=== PATIENT | male | born 1950 | race Caucasian/White ===

== ENCOUNTER → 2016-12-10 | Outpatient (REF) | payer OTHER ==
[2016-12-10 12:13] LABS: MEAN CORPUSCULAR HEMOGLOBIN 31.5 pg (27.0-33.0); MEAN CORPUSCULAR HGB CONC 33.3 g/dl (32.0-36.5); MEAN CORPUSCULAR VOLUME 94.5 fl (80.0-96.0); RED CELL DISTRIBUTION WIDTH 12.9 % (11.5-14.5); WHITE BLOOD COUNT 11.6 K/mm3 (4.0-10.0)
[2016-12-10 12:26] LABS: ALBUMIN 4.1 GM/DL (3.2-5.2); ALBUMIN/GLOBULIN RATIO 1.41 (1.00-1.93); BILIRUBIN,TOTAL 0.8 MG/DL (0.2-1.0); CALCIUM LEVEL 9.3 MG/DL (8.8-10.2); CREATININE FOR GFR 1.3 MG/DL (0.70-1.30); GLOMERULAR FILTRATION RATE 59.2 (>49); POTASSIUM SERUM 4.4 MEQ/L (3.5-5.1)
== END ==
LOC: M SFHCLERA 07:58
PROVIDERS: ATTEND Physician Assistant
DX: I10 Essential (primary) hypertension (principal); E78.2 Mixed hyperlipidemia; E11.9 Type 2 diabetes mellitus without complications; Z12.5 Encounter for screening for malignant neoplasm of prostate
CPT/HCPCS: 80053; 80061; 83036; 85027; G0103

== ENCOUNTER → 2017-06-12 | Outpatient (REF) | payer MEDICARE, OTHER ==
[2017-06-12 12:10] LABS: ALBUMIN/GLOBULIN RATIO 1.48 (1.00-1.93); ALKALINE PHOSPHATASE 35 U/L (45-117); ALT/SGPT 42 U/L (12-78); ANION GAP 5 MEQ/L (8-16); AST/SGOT 15 U/L (15-37); BILIRUBIN,TOTAL 0.6 MG/DL (0.2-1.0); BLOOD UREA NITROGEN 18 MG/DL (7-18); CALCIUM LEVEL 9.3 MG/DL (8.8-10.2); CARBON DIOXIDE LEVEL 30 MEQ/L (21-32); CHLORIDE LEVEL 107 MEQ/L (98-107); CHOLESTEROL LEVEL 111 MG/DL (<200); CREATININE FOR GFR 1.04 MG/DL (0.70-1.30); GLOMERULAR FILTRATION RATE > 60.0 (>49); GLUCOSE, FASTING 126 MG/DL (80-110); POTASSIUM SERUM 4.3 MEQ/L (3.5-5.1); SODIUM LEVEL 142 MEQ/L (136-145); TOTAL PROTEIN 6.7 GM/DL (6.4-8.2); TRIGLYCERIDES LEVEL 180 MG/DL (<150)
== END ==
LOC: M SFHCLERA 08:05
PROVIDERS: ATTEND Physician Assistant
DX: I10 Essential (primary) hypertension (principal); E11.9 Type 2 diabetes mellitus without complications; E78.2 Mixed hyperlipidemia

== ENCOUNTER → 2017-12-09 | Outpatient (REF) | payer MEDICARE, OTHER ==
[2017-12-09 12:16] LABS: HEMATOCRIT 49.1 % (42.0-52.0); HEMOGLOBIN 16.4 g/dl (14.0-18.0); MEAN CORPUSCULAR HEMOGLOBIN 30.4 pg (27.0-33.0); MEAN CORPUSCULAR HGB CONC 33.4 g/dl (32.0-36.5); MEAN CORPUSCULAR VOLUME 90.9 fl (80.0-96.0); PLATELET COUNT, AUTOMATED 321 10^3/uL (150-450); RED CELL DISTRIBUTION WIDTH 13.5 % (11.5-14.5); WHITE BLOOD COUNT 11.9 10^3/uL (4.0-10.0)
[2017-12-09 12:34] LABS: ALBUMIN 4.2 GM/DL (3.2-5.2); ALKALINE PHOSPHATASE 38 U/L (45-117); ALT/SGPT 57 U/L (12-78); ANION GAP 8 MEQ/L (8-16); AST/SGOT 26 U/L (7-37); BILIRUBIN,TOTAL 0.8 MG/DL (0.2-1.0); BLOOD UREA NITROGEN 18 MG/DL (7-18); CALCIUM LEVEL 9.4 MG/DL (8.8-10.2); CARBON DIOXIDE LEVEL 30 MEQ/L (21-32); CHLORIDE LEVEL 102 MEQ/L (98-107); CHOLESTEROL LEVEL 123 MG/DL (<200); CHOLESTEROL RISK RATIO 3.727 (<5); CREATININE FOR GFR 1.14 MG/DL (0.70-1.30); GLOMERULAR FILTRATION RATE > 60.0 (>49); GLUCOSE, FASTING 129 MG/DL (70-100); HDL CHOLESTEROL 33 MG/DL (>40); LDL CHOLESTEROL 50.8 MG/DL (<100); NON-HDL-C 90 MG/DL; POTASSIUM SERUM 4.5 MEQ/L (3.5-5.1); PSA SCREENING 3.37 NG/ML (< 4.0); SODIUM LEVEL 140 MEQ/L (136-145); TRIGLYCERIDES LEVEL 196 MG/DL (<150)
[2017-12-09 13:26] LABS: ESTIMATED AVERAGE GLUCOSE 169 MG/DL (60-110); HEMOGLOBIN A1c 7.5 %
== END ==
LOC: M SFHCLERA 08:04
DX: I10 Essential (primary) hypertension (principal); E11.9 Type 2 diabetes mellitus without complications; E78.2 Mixed hyperlipidemia; N40.1 Benign prostatic hyperplasia with lower urinary tract symptoms
CPT/HCPCS: 80053

== ENCOUNTER → 2018-01-08 | Outpatient (REF) | payer MEDICARE, OTHER | LOC: M LAB REF 19:27 | DX: N39.0 Urinary tract infection, site not specified (principal) | CPT/HCPCS: 87088 ==

== ENCOUNTER → 2018-01-08 | Outpatient (CLI) | payer MEDICARE, OTHER ==
[2018-01-08 19:46] LABS: HEMATOCRIT 44.6 % (42.0-52.0); MEAN CORPUSCULAR HEMOGLOBIN 30.5 pg (27.0-33.0); MEAN CORPUSCULAR HGB CONC 33.6 g/dl (32.0-36.5); MEAN CORPUSCULAR VOLUME 90.8 fl (80.0-96.0); PLATELET COUNT, AUTOMATED 310 10^3/uL (150-450); RED BLOOD COUNT 4.91 10^6/uL (4.30-6.10); RED CELL DISTRIBUTION WIDTH 13.4 % (11.5-14.5)
[2018-01-08 19:49] LABS: POSITIVE DIFF POS FLAG
[2018-01-08 19:51] LABS: ADD MANUAL DIFFER YES; DIFF SLIDE NUMBER 319
[2018-01-08 20:00] LABS: ALBUMIN 3.8 GM/DL (3.2-5.2); ALBUMIN/GLOBULIN RATIO 1.27 (1.00-1.93); ALKALINE PHOSPHATASE 39 U/L (45-117); ALT/SGPT 36 U/L (12-78); ANION GAP 6 MEQ/L (8-16); AST/SGOT 11 U/L (7-37); BILIRUBIN,TOTAL 1.2 MG/DL (0.2-1.0); BLOOD UREA NITROGEN 14 MG/DL (7-18); CARBON DIOXIDE LEVEL 29 MEQ/L (21-32); CHLORIDE LEVEL 101 MEQ/L (98-107); CREATININE FOR GFR 1.15 MG/DL (0.70-1.30); GLOMERULAR FILTRATION RATE > 60.0 (>49); GLUCOSE, FASTING 137 MG/DL (70-100); POTASSIUM SERUM 3.8 MEQ/L (3.5-5.1); SODIUM LEVEL 136 MEQ/L (136-145); TOTAL PROTEIN 6.8 GM/DL (6.4-8.2)
[2018-01-08 20:36] LABS: ATYPICAL LYMPH 1 % (0-5); LYMPHOCYTES 7 % (16-52); MONOCYTES 4 % (0-8); NEUTROPHILS 88 % (35-75)
[2018-01-08 20:40] LABS: PLATELET ESTIMATE NORMAL (NORMAL)
== END ==
LOC: M WUC 16:25
DX: N39.0 Urinary tract infection, site not specified (principal)
CPT/HCPCS: 80053

== ENCOUNTER → 2018-01-09 | Outpatient (CLI) | payer MEDICARE, OTHER ==
[2018-01-09 20:11] LABS: BASO # 0.1 10^3/uL (0.0-0.2); BASO % 0.3 % (0.0-1.0); EOS # 0.2 10^3/uL (0.0-0.50); EOS % 0.6 % (0.0-3.0); HEMATOCRIT 42.6 % (42.0-52.0); HEMOGLOBIN 14.1 g/dl (14.0-18.0); IMMATURE GRANULOCYTE % 0.9 % (0-3.0); LYMPH # 2.2 10^3/uL (1.5-4.5); MEAN CORPUSCULAR HEMOGLOBIN 30.9 pg (27.0-33.0); MEAN CORPUSCULAR HGB CONC 33.1 g/dl (32.0-36.5); MEAN CORPUSCULAR VOLUME 93.4 fl (80.0-96.0); MONO # 1.9 10^3/uL (0.0-0.8); NEUTROPHILS # 23.1 10^3/uL (1.8-7.7); NEUTROPHILS % 83.2 % (36.0-66.0); PLATELET COUNT, AUTOMATED 272 10^3/uL (150-450); RED BLOOD COUNT 4.56 10^6/uL (4.30-6.10); RED CELL DISTRIBUTION WIDTH 13.8 % (11.5-14.5); WHITE BLOOD COUNT 27.8 10^3/uL (4.0-10.0)
== END ==
LOC: M WUC 16:35
DX: N39.0 Urinary tract infection, site not specified (principal); D72.829 Elevated white blood cell count, unspecified
CPT/HCPCS: 85025

== ENCOUNTER 2018-01-10 15:21 | Emergency (ER) | payer MEDICARE, BC, OTHER ==
[2018-01-10 17:54] LABS: APPEARANCE, URINE CLEAR (CLEAR); BACTERIA, URINE AUTO NEGATIVE (NEGATIVE); BILIRUBIN, URINE AUTO NEGATIVE (NEGATIVE); BLOOD, URINE BLOOD NEGATIVE (NEGATIVE); COLOR, URINE YELLOW (YELLOW); GLUCOSE, URINE (UA) AUTO NEGATIVE (NEGATIVE); KETONE, URINE AUTO NEGATIVE (NEGATIVE); LEUKOCYTE ESTERASE, URINE AUTO TRACE (NEGATIVE); MUCUS, URINE SMALL (NEGATIVE); NITRITE, URINE AUTO NEGATIVE (NEGATIVE); PROTEIN, URINE AUTO NEGATIVE (NEGATIVE); RBC, URINE AUTO 1 /HPF (0-3); SPECIFIC GRAVITY URINE AUTO 1.012 (1.002-1.035); SQUAMOUS EPITHELIAL CELL UR AU 0 /HPF (0-6); WBC, URINE AUTO 3 /HPF (0-3)
[2018-01-10 18:18] LABS: BASO # 0.1 10^3/uL (0.0-0.2); BASO % 0.5 % (0.0-1.0); EOS # 0.3 10^3/uL (0.0-0.50); EOS % 1.5 % (0.0-3.0); HEMATOCRIT 44.2 % (42.0-52.0); IMMATURE GRANULOCYTE % 0.7 % (0-3.0); LYMPH # 1.5 10^3/uL (1.5-4.5); MEAN CORPUSCULAR HEMOGLOBIN 30.8 pg (27.0-33.0); MEAN CORPUSCULAR HGB CONC 33.9 g/dl (32.0-36.5); MEAN CORPUSCULAR VOLUME 90.8 fl (80.0-96.0); MONO # 1.4 10^3/uL (0.0-0.8); NEUTROPHILS # 13.7 10^3/uL (1.8-7.7); NEUTROPHILS % 80.3 % (36.0-66.0); PLATELET COUNT, AUTOMATED 279 10^3/uL (150-450); RED BLOOD COUNT 4.87 10^6/uL (4.30-6.10); RED CELL DISTRIBUTION WIDTH 13.7 % (11.5-14.5); WHITE BLOOD COUNT 17.1 10^3/uL (4.0-10.0)
[2018-01-10 18:48] LABS: ALBUMIN 3.8 GM/DL (3.2-5.2); ALBUMIN/GLOBULIN RATIO 0.95 (1.00-1.93); ALKALINE PHOSPHATASE 45 U/L (45-117); ALT/SGPT 29 U/L (12-78); ANION GAP 7 MEQ/L (8-16); AST/SGOT 10 U/L (7-37); BILIRUBIN,TOTAL 0.6 MG/DL (0.2-1.0); BLOOD UREA NITROGEN 18 MG/DL (7-18); CALCIUM LEVEL 9.3 MG/DL (8.8-10.2); CARBON DIOXIDE LEVEL 28 MEQ/L (21-32); CHLORIDE LEVEL 103 MEQ/L (98-107); CREATININE FOR GFR 0.99 MG/DL (0.70-1.30); GLOMERULAR FILTRATION RATE > 60.0 (>49); GLUCOSE, FASTING 128 MG/DL (70-100); POTASSIUM SERUM 3.5 MEQ/L (3.5-5.1); SODIUM LEVEL 138 MEQ/L (136-145); TOTAL PROTEIN 7.8 GM/DL (6.4-8.2)
== END 2018-01-10 19:18 | disposition home or self-care (01) ==
LOC: M ED 15:21
DX: R33.9 Retention of urine, unspecified (principal); I10 Essential (primary) hypertension; E78.5 Hyperlipidemia, unspecified; E11.9 Type 2 diabetes mellitus without complications; K21.9 Gastro-esophageal reflux disease without esophagitis; N40.0 Benign prostatic hyperplasia without lower urinary tract symptoms; F17.200 Nicotine dependence, unspecified, uncomplicated; Z79.899 Other long term (current) drug therapy; Z79.01 Long term (current) use of anticoagulants; Z79.84 Long term (current) use of oral hypoglycemic drugs
CPT/HCPCS: 80053

== ENCOUNTER → 2018-07-16 | Outpatient (REF) | payer MEDICARE, OTHER ==
[2018-07-16 15:50] LABS: ESTIMATED AVERAGE GLUCOSE 143 MG/DL (60-110); HEMOGLOBIN A1c 6.6 %
== END ==
LOC: M SFHCSACK 09:16
DX: E11.9 Type 2 diabetes mellitus without complications (principal)
CPT/HCPCS: 83036

== ENCOUNTER → 2018-07-17 | Outpatient (REF) | payer MEDICARE, OTHER ==
[2018-07-17 14:32] LABS: ALBUMIN 3.9 GM/DL (3.2-5.2); ALBUMIN/GLOBULIN RATIO 1.39 (1.00-1.93); ALKALINE PHOSPHATASE 40 U/L (45-117); ALT/SGPT 37 U/L (12-78); ANION GAP 6 MEQ/L (8-16); AST/SGOT 16 U/L (7-37); BILIRUBIN,TOTAL 0.7 MG/DL (0.2-1.0); BLOOD UREA NITROGEN 15 MG/DL (7-18); CARBON DIOXIDE LEVEL 30 MEQ/L (21-32); CHLORIDE LEVEL 106 MEQ/L (98-107); CREATININE FOR GFR 1.03 MG/DL (0.70-1.30); GLOMERULAR FILTRATION RATE > 60.0 (>49); GLUCOSE, FASTING 123 MG/DL (70-100); POTASSIUM SERUM 4.2 MEQ/L (3.5-5.1); SODIUM LEVEL 142 MEQ/L (136-145); TOTAL PROTEIN 6.7 GM/DL (6.4-8.2)
== END ==
LOC: M SFHCSACK 09:04
DX: E11.9 Type 2 diabetes mellitus without complications (principal)
CPT/HCPCS: 80053

== ENCOUNTER → 2018-08-18 | Outpatient (REF) | payer MEDICARE, OTHER | LOC: M SFHCSACK 10:43 | DX: I10 Essential (primary) hypertension (principal); E78.2 Mixed hyperlipidemia; E11.9 Type 2 diabetes mellitus without complications; Z13.21 Encounter for screening for nutritional disorder ==

== ENCOUNTER → 2019-01-21 | Outpatient (REF) | payer MEDICARE, OTHER ==
[~2019-01-21] MED LIST: ATOR1TAB19 PO; BISO5TAB5 PO; CIPR-249 PO; ELIQ5TAB PO; FENO134C PO; HYDR12.55 PO; LISI-538 PO; METF500T13 PO; OMEP40CA2 PO; TERA5CAP3 PO; TRAV04OPD OU
[2019-01-21 14:39] LABS: ALBUMIN 3.8 GM/DL (3.2-5.2); ALT/SGPT 51 U/L (12-78); BILIRUBIN,TOTAL 0.9 MG/DL (0.2-1.0); BLOOD UREA NITROGEN 14 MG/DL (7-18); CALCIUM LEVEL 9.1 MG/DL (8.8-10.2); CARBON DIOXIDE LEVEL 30 MEQ/L (21-32); CHLORIDE LEVEL 101 MEQ/L (98-107); CHOLESTEROL LEVEL 114 MG/DL (<200); CHOLESTEROL RISK RATIO 4.071 (<5); CREATININE FOR GFR 1.02 MG/DL (0.70-1.30); GLOMERULAR FILTRATION RATE > 60.0 (>49); GLUCOSE, FASTING 145 MG/DL (70-100); HDL CHOLESTEROL 28 MG/DL (>40); LDL CHOLESTEROL 51 MG/DL (<100); NON-HDL-C 86 MG/DL; POTASSIUM SERUM 4.3 MEQ/L (3.5-5.1); SODIUM LEVEL 139 MEQ/L (136-145); TOTAL 25(OH) VITAMIN D 15.4 NG/ML (30.0-100.0); TOTAL PROTEIN 6.7 GM/DL (6.4-8.2); TRIGLYCERIDES LEVEL 175 MG/DL (<150)
[2019-01-21 15:54] LABS: HEMOGLOBIN A1c 7.4 %
[2019-01-21 15:56] LABS: BASO # 0.1 10^3/uL (0.0-0.2); BASO % 0.8 % (0.0-1.0); EOS # 0.4 10^3/uL (0.0-0.50); EOS % 3.6 % (0.0-3.0); HEMATOCRIT 49.5 % (42.0-52.0); HEMOGLOBIN 16.6 g/dl (13.5-17.5); LYMPH % 18.6 % (24.0-44.0); MEAN CORPUSCULAR HEMOGLOBIN 30.2 pg (27.0-33.0); MEAN CORPUSCULAR HGB CONC 33.5 g/dl (32.0-36.5); MONO # 0.9 10^3/uL (0.0-0.8); NEUTROPHILS # 7.4 10^3/uL (1.8-7.7); NEUTROPHILS % 68.4 % (36.0-66.0); PLATELET COUNT, AUTOMATED 284 10^3/uL (150-450); WHITE BLOOD COUNT 10.8 10^3/uL (4.0-10.0)
== END ==
LOC: M SFHCSACK 09:55
PROVIDERS: ATTEND Physician Assistant
DX: I10 Essential (primary) hypertension (principal); E78.2 Mixed hyperlipidemia; E11.9 Type 2 diabetes mellitus without complications; Z12.5 Encounter for screening for malignant neoplasm of prostate; E55.9 Vitamin D deficiency, unspecified
CPT/HCPCS: 36415; 80053; 80061; 82043; 82306; 83036; 85025; G0103

== ENCOUNTER 2019-02-18 19:18 | Inpatient (IN) | payer MEDICARE, BC, OTHER ==
[~2019-02-18] VITALS: Ht 180.3 cm; Wt 121.4 kg
[2019-02-18 20:07] LABS: BASO # 0.1 10^3/uL (0.0-0.2); BASO % 0.7 % (0.0-1.0); EOS # 0.4 10^3/uL (0.0-0.50); EOS % 3.6 % (0.0-3.0); HEMATOCRIT 46.2 % (42.0-52.0); HEMOGLOBIN 15.6 g/dl (13.5-17.5); LYMPH % 24.6 % (24.0-44.0); MEAN CORPUSCULAR HEMOGLOBIN 30.4 pg (27.0-33.0); MEAN CORPUSCULAR HGB CONC 33.8 g/dl (32.0-36.5); MEAN CORPUSCULAR VOLUME 89.9 fl (80.0-96.0); MONO # 0.8 10^3/uL (0.0-0.8); MONO % 6.6 % (0.0-5.0); NEUTROPHILS # 7.7 10^3/uL (1.8-7.7); PLATELET COUNT, AUTOMATED 272 10^3/uL (150-450); RED BLOOD COUNT 5.14 10^6/uL (4.30-6.10)
[2019-02-18 20:27] LABS: BLOOD UREA NITROGEN 15 MG/DL (7-18); CALCIUM LEVEL 9.4 MG/DL (8.8-10.2); CARBON DIOXIDE LEVEL 29 MEQ/L (21-32); CHLORIDE LEVEL 104 MEQ/L (98-107); CPK CREATINE PHOSPHOKINASE 186 U/L (39-308); CREATININE FOR GFR 1.01 MG/DL (0.70-1.30); GLOMERULAR FILTRATION RATE > 60.0 (>49); GLUCOSE, FASTING 203 MG/DL (70-100); MB/CK RELATIVE INDEX 2.85 (< OR =4); NT-PRO BNP 254 PG/ML (<125); POTASSIUM SERUM 3.7 MEQ/L (3.5-5.1); SODIUM LEVEL 139 MEQ/L (136-145); TROPONIN I < 0.02 NG/ML (< 0.10)
[2019-02-18] MEDS ORDERED: METF-839 PO (20:31)
[2019-02-18] MEDS ORDERED: HYDR25TAB PO (20:31)
[2019-02-18] MEDS ORDERED: TERA10CA3 PO (20:34)
[2019-02-18] MEDS ORDERED: BRIM1OPD OU (20:38)
[2019-02-18] MEDS ORDERED: PROAAER10 INH (20:38)
[2019-02-18] MEDS ORDERED: IBUP200T45 PO (20:38)
[2019-02-18] MEDS ORDERED: VITA500045 PO (20:38)
[2019-02-18] MEDS ORDERED: LEVOTAB10 PO (20:38)
[2019-02-18] MEDS ORDERED: ACETAMINOPHEN TAB 650MG DOSE (2X325MG) PO PRN (21:30)
[2019-02-18] MEDS ORDERED: MOM 30ML SUSPENSION UDC PO PRN (21:30)
[2019-02-18] MEDS ORDERED: MAALOX 30 ML SUSP *UDC PO PRN (21:30)
--- NOTE | 2019-02-18 21:48 | ECGEPIP ---
Stationary ECG Study [facility] - ED Test Date: 2019-02-18 Pat Name: TIM FLOYD Department: Room: - Gender: M Associate Store Manager: JT : 1950 Requested By: VIKY Dhaliwal Order Number: [id number] Reading MD: Phillip Sheffield Measurements Intervals [place] Rate: 73 P: SD: 0 QRS: 69 QRSD: 81 T: 47 QT: 368 QTc: 407 Interpretive Statements ATRIAL FIBRILLATION Delayed anterior R wave progression Nonspecific T wave abnormality Electronically Signed On 02-18-2019 21:48:12 EDT by Phillip Sheffield
[2019-02-18 22:08] LABS: INR 0.96; PROTHROMBIN TIME 12.9 SECONDS (12.1-14.4)
--- NOTE | 2019-02-18 22:08 | REP ---
Chest one-view HISTORY: Chest pain Comparison: 07/04/2015 A minimal increase in interstitial markings is present in the lower lobes consistent with chronic interstitial change. . The heart is normal in size. The pulmonary vasculature is normal in appearance. Impression: Bibasilar chronic interstitial change. Electronically Signed by Jameson Kirby MD 02/18/2019 10:00 P
[2019-02-18 22:09] LABS: PARTIAL THROMBOPLASTIN TIME 30.3 SECONDS (25.4-37.6)
--- NOTE | 2019-02-18 22:41 | HPEPDOC ---
General Date of Admission February 18, 2019 at 21:26 Primary Care Physician: Noelle Gomez PA-C ER Attending Physician: HELEN AGUILAR MD Chief Complaint The patient is a 68-year-old male admitted with a reason for visit of Nu- Tachy Syndrome. Source: Patient, Family Exam Limitations: No limitations History of Present Illness Mr. Shaw is a 68 years old man with hx/o AF. He was asked by his screen cutter and trimmer to go to ER to be admitted for pacemaker for tachy-nu syndrome. Reportedly, significant pauses were noted on the Holter monitor that he has been carrying for some time. In the ER, pt is totally asymptomatic; denies chest pain, ligh theadedness or syncope. He is at his usual state of health. Pt reports SOB for several months, and he has leg edema bilaterally which he did not seem to be aware of. There is no echo on file and pt doesn't use diuretic at home, except for HCTZ. Cardiology was consulted from ER; recommended holding Eliquis and BB, in preparation for pacemaker placement tomorrow. Basic labs are normal except for mild leucocytosis. Vitals are good. EKG/Tele shows AF at VR of 60-70/min with no significant ST-T changes. Home Medications Scheduled Apixaban (Eliquis) 5 Mg Tab, 5 MG PO BID, (Reported) Atorvastatin Calcium (Atorvastatin Calcium) 10 Mg Tab, 10 MG PO QHS, (Reported) Bisoprolol Fumarate (Bisoprolol Fumarate) 5 Mg Tab, 5 MG PO DAILY, (Reported) Brimonidine Tartrate (Alphagan P) 0.1% 5ML Drops, 1 DROP OU BID, (Reported) WITH BREAKFAST AND SUPPER Ergocalciferol (Vitamin D2) (Vitamin D2) 50,000 Unit Capsule, 50,000 UNIT PO QW [place], (Reported) TUESDAYS Fenofibrate,Micronized (Fenofibrate) 134 Mg Cap, 134 MG PO DAILY, (Reported) TAKES AT 1200 Hydrochlorothiazide (Hydrochlorothiazide) 25 Mg Tablet, 25 MG PO DAILY, (Reported) Levocetirizine Dihydrochloride (Levocetirizine Dihydrochloride) 5 Mg Tablet, 5 MG PO QHS, (Reported) Lisinopril (Lisinopril) 20 Mg Tab, 20 MG PO DAILY, (Reported) TAKES AT 1200 Metformin HCl (Metformin HCl) 500 Mg Tab, 500 MG PO DAILY, (Reported) Metformin HCl (Metformin HCl) 500 Mg Tablet, 1,000 MG PO QPM, (Reported) WITH SUPPER Terazosin Hcl (Terazosin HCl) 10 Mg Capsule, 10 MG PO QHS, (Reported) Travoprost (Travatan Z) 50 Drop/2.5 Ml Soln, 1 DROP OU QHS, (Reported) Scheduled PRN Albuterol Sulfate (Proair Hfa) 8.5 Gm Hfa.aer.ad, 2 PUFF INH Q4H PRN for SHORTNESS OF BREATH, (Reported) Ibuprofen (Ibu-200) 200 Mg Tablet, 400 MG PO DAILY PRN for PAIN, (Reported) Allergies Coded Allergies: hazelnut (Verified Allergy, Mild, 02/18/19) itchy throat Past Medical History Medical History see problem list Surgical History none reported Social History * Smoker: current smoker Alcohol: Denies Drugs: denies A-FIB/CHADSVASC A-FIB History Current/History of A-Fib/PAF?: Yes Current Oral Anticoagulant The: Yes Treatment Treatment ordered: Holding Other Reason Anticoagulant not given: Recent/upcomin procedure Review of Systems Pulmonary: Reports: Dyspnea Cardiovascular: Reports: Paroxysmal Noc. Dyspnea, Edema Physical Examination General Exam: Positive: Alert, Cooperative, No Acute Distress Eye Exam: Positive: PERRLA ENT Exam: Positive: Atraumatic Neck Exam: Positive: Supple, JVD Chest Exam: Positive: Clear to auscultation, Normal air movement Heart Exam: Positive: Irregular Rhythm Telemetry: Positive: Atrial fibrillation Abdomen Exam: Positive: Normal bowel sounds Extremity Exam: Positive: Edema, Normal pulses Neuro Exam: Positive: Normal Speech, Strength at 5/5 X4 ext Psych Exam: Positive: Mental status NL, Mood NL Vital Signs Vital Signs Date Time Temp Pulse Resp B/P (MAP) Pulse Ox O2 Delivery O2 Flow Rate FiO2 02/18/19 22:16 144/71 (95) 02/18/19 22:15 98.2 66 14 94 Room Air Laboratory Data Labs 24H Laboratory Tests 2 02/18/19 19:53: Immature Granulocyte % (Auto) 0.5, White Blood Count 12.0H, Red Blood Count 5.14, Hemoglobin 15.6, Hematocrit 46.2, Mean Corpuscular Volume 89.9, Mean Corpuscular Hemoglobin 30.4, Mean Corpuscular Hemoglobin Concent 33.8, Red Cell Distribution Width 13.7, Platelet Count 272, Neutrophils (%) (Auto) 64.0, Lymphocytes (%) (Auto) 24.6, Monocytes (%) (Auto) 6.6H, Eosinophils (%) (Auto) 3.6H, Basophils (%) (Auto) 0.7, Neutrophils # (Auto) 7.7, Lymphocytes # (Auto) 3.0, Monocytes # (Auto) 0.8, Eosinophils # (Auto) 0.4, Basophils # (Auto) 0.1, Nucleated Red Blood Cells % (auto) 0.0, Prothrombin Time 12.9, Prothromb Time International Ratio 0.96, Activated Partial Thromboplast Time 30.3, Anion Gap 6L, Glomerular Filtration Rate > 60.0, Blood Urea Nitrogen 15, Creatinine 1.01, Sodium Level 139, Potassium Level 3.7, Chloride Level 104, Carbon Dioxide Level 29, Calcium Level 9.4, Total Creatine Kinase 186, Creatine Kinase MB 5.0H, Creatine Kinase MB Relative Index 2.85, Troponin I < 0.02, IK-Eqx-P-Type Natriuretic Peptide 254H CBC/BMP Laboratory Tests 02/18/19 19:53 Red Blood Count 5.14, Mean Corpuscular Volume 89.9, Mean Corpuscular Hemoglobin 30.4, Mean Corpuscular Hemoglobin Concent 33.8, Red Cell Distribution Width 13.7, Neutrophils (%) (Auto) 64.0, Lymphocytes (%) (Auto) 24.6, Monocytes (%) (Auto) 6.6 H, Eosinophils (%) (Auto) 3.6 H, Basophils (%) (Auto) 0.7, Neutrophils # (Auto) 7.7, Lymphocytes # (Auto) 3.0, Monocytes # (Auto) 0.8, Eosinophils # (Auto) 0.4, Basophils # (Auto) 0.1, Calcium Level 9.4, Total Creatine Kinase 186 Assessment/Plan 68 years old man with AF being admitted for pacemaker placement for tachy-nu syndrome. PLAN: - Admit to PCU with cardiac monitoring - Holding Eliquis and BB as per cardiology recommendation - Pacemaker placement tomorrow; keep NPO - Hold metformin - Echo in the morning; trend troponins Problems (1) Nu-tachy syndrome Status: Acute (2) Afib (3) HTN (hypertension) (4) HLD (hyperlipidemia) Plan / VTE VTE Prophylaxis Ordered?: No VTE Exclusion Mechanical Proph: Low Risk for VTE VTE Exclusion Pharmacological: Bleeding Risk (going for proedure) Plan Diet: Make NPO Activity: Bedrest Anticipated Discharge: Home HELEN AGUILAR MD February 18, 2019 22:41
[2019-02-18] MEDS ORDERED: ALBUTEROL 90 MCG/ACT 8GM HFA INHALER INH PRN (23:00)
[2019-02-18] MEDS ORDERED: GLUCOSE 4 GM CHEW TABLET PO PRN (23:00)
[2019-02-18] MEDS ORDERED: DEXTROSE 50% 50 ML SYRINGE IV PRN (23:00)
[2019-02-18] MEDS ORDERED: GLUCAGON FOR INJ 1 MG VIAL (J1610) SC PRN (23:00)
[2019-02-18 23:45] VITALS: BP 150/81
[2019-02-19] VITALS (17 sets, daily range): BP systolic 119–166; BP diastolic 64–107
[2019-02-19] MEDS: TERAZOSIN 5 MG CAP PO SCH ×2 (00:01→20:20)
[2019-02-19] MEDS: LATANOPROST 0.005% OPHTH SOLN 2.5 ML OU SCH ×2 (00:01→20:20)
[2019-02-19] MEDS: BRIMONIDINE 0.1% OPHTH SOLN 5 ML OU SCH ×2 (08:27→18:00)
[2019-02-19] MEDS ORDERED: hydroCHLOROthiazide 25 MG TAB PO SCH (09:00)
[2019-02-19] MEDS ORDERED: NS 1,000 ML IV SCH (10:00)
--- NOTE | 2019-02-19 10:58 | IPNPDOC ---
Subjective Date Seen The patient was seen on 02/19/19. Subjective Chief Complaint/HPI Patient seen and examined at the bedside. Denies any acute complaints at this time. Objective Physical Examination General Exam: Positive: Alert, Cooperative, No Acute Distress ENT Exam: Positive: Atraumatic, Mucous membr. moist/pink Chest Exam: Positive: Clear to auscultation, Normal air movement Heart Exam: Positive: Irregular Rhythm Telemetry: Positive: Atrial fibrillation Abdomen Exam: Positive: Soft; Negative: Tenderness Extremity Exam: Negative: Tenderness, Swelling Neuro Exam: Positive: Normal Speech Psych Exam: Positive: Mental status NL, Mood NL, Oriented x 3 Assessment /Plan Plan/VTE VTE Prophylaxis Ordered?: No VTE Exclusion Mechanical Proph: Low Risk for VTE VTE Exclusion Pharmacological: Bleeding Risk (going for proedure) Plan Hx of Tachy-Manjeet Syndrome with Multiple Pauses Cardiology on board and scheduled to take the patient for pacemaker placement this AM Patient w/o any acute complaints this AM History of atrial fibrillation Anticoagulation held secondary to above Hypertension, stable We will continue meds as ordered Dyslipidemia Continue statin Diabetes mellitus Insulin scale Dispo--pending pacemaker placement VS, I&O, 24H, [facility] Vital Signs/I&O Vital Signs Date Time Temp Pulse Resp B/P (MAP) Pulse Ox O2 Delivery O2 Flow Rate FiO2 02/19/19 08:00 97.5 67 12 133/81 (98) 94 02/19/19 06:00 2.0 02/18/19 23:16 Room Air I&O- Last 24 Hours up to 6 AM 02/19/19 06:00 Intake Total 0 ml Output Total 0 ml Balance 0 ml Laboratory Data 24H LABS Laboratory Tests 2 02/18/19 19:53: Immature Granulocyte % (Auto) 0.5, White Blood Count 12.0H, Red Blood Count 5.14, Hemoglobin 15.6, Hematocrit 46.2, Mean Corpuscular Volume 89.9, Mean Corpuscular Hemoglobin 30.4, Mean Corpuscular Hemoglobin Concent 33.8, Red Cell Distribution Width 13.7, Platelet Count 272, Neutrophils (%) (Auto) 64.0, Lymphocytes (%) (Auto) 24.6, Monocytes (%) (Auto) 6.6H, Eosinophils (%) (Auto) 3.6H, Basophils (%) (Auto) 0.7, Neutrophils # (Auto) 7.7, Lymphocytes # (Auto) 3.0, Monocytes # (Auto) 0.8, Eosinophils # (Auto) 0.4, Basophils # (Auto) 0.1, Nucleated Red Blood Cells % (auto) 0.0, Prothrombin Time 12.9, Prothromb Time International Ratio 0.96, Activated Partial Thromboplast Time 30.3, Anion Gap 6L, Glomerular Filtration Rate > 60.0, Blood Urea Nitrogen 15, Creatinine 1.01, Sodium Level 139, Potassium Level 3.7, Chloride Level 104, Carbon Dioxide Level 29, Calcium Level 9.4, Total Creatine Kinase 186, Creatine Kinase MB 5.0H, Creatine Kinase MB Relative Index 2.85, Troponin I < 0.02, BR-Xdk-D-Type Natriuretic Peptide 254H 02/18/19 23:18: Troponin I < 0.02 02/19/19 00:05: Bedside Glucose (Misc Panel) 105 02/19/19 04:49: Troponin I < 0.02 02/19/19 06:05: Bedside Glucose (Misc Panel) 154H CBC/BMP Laboratory Tests 02/18/19 19:53 Red Blood Count 5.14, Mean Corpuscular Volume 89.9, Mean Corpuscular Hemoglobin 30.4, Mean Corpuscular Hemoglobin Concent 33.8, Red Cell Distribution Width 13.7, Neutrophils (%) (Auto) 64.0, Lymphocytes (%) (Auto) 24.6, Monocytes (%) (Auto) 6.6 H, Eosinophils (%) (Auto) 3.6 H, Basophils (%) (Auto) 0.7, Neutrophils # (Auto) 7.7, Lymphocytes # (Auto) 3.0, Monocytes # (Auto) 0.8, Eosinophils # (Auto) 0.4, Basophils # (Auto) 0.1, Calcium Level 9.4, Total Creatine Kinase 186 MARIE CARLIN MD February 19, 2019 10:58
[2019-02-19] MEDS ORDERED: NICOTINE 14 MG/24 HR TRANSDERMAL TD PRN (11:30)
[2019-02-19] MEDS ORDERED: ATROPINE SULF 1MG/10ML SYRINGE (J0461) IV PRN (11:30)
[2019-02-19] MEDS ORDERED: LISINOPRIL 20 MG TAB PO SCH (12:00)
[2019-02-19] MEDS ORDERED: VANCOMYCIN 1000 MG/20 ML VIAL (J3370) As Ordered ONE (13:50)
[2019-02-19] MEDS ORDERED: LIDOCAINE 1% SDV INJ 30 ML VIAL As Ordered ONE (13:50)
[2019-02-19] MEDS ORDERED: ISOVUE-300 61% 50ML VIAL (Q9967) As Ordered ONE (13:50)
[2019-02-19] MEDS ORDERED: MUPIROCIN 2% OINT 22 GM TUBE As Ordered ONE (13:50)
--- NOTE | 2019-02-19 16:20 | ECHO ---
DATE OF PROCEDURE: 02/19/2019 REFERRING PHYSICIAN: Dr. Salomón Beckham INDICATION: Dyspnea. HEIGHT: 180 cm WEIGHT: 121 kg 2D MEASUREMENTS: Aortic root: 3.6 cm Left atrium: 4.8 cm Ventricular septum: 1.26 cm Posterior wall: 1.40 cm Left ventricle diastole: 5.0 cm Aortic annulus: 2.3 cm DOPPLER MEASUREMENTS: Aortic valve velocity: 132 cm/s LVOT velocity: 57.9 cm/s LVOT VTI: 13.2 cm Very mild mitral regurgitation. No aortic regurgitation. Very mild tricuspid regurgitation. Estimated right ventricle systolic pressure: At least 38 mmHg assuming a right atrial pressure of at least 5 mmHg. DESCRIPTION: This was a 2D, M-mode, color flow Doppler and pulse wave Doppler examination and included mitral annular tissue Doppler. No pericardial effusion. This was a moderately technically difficult echocardiogram. Rhythm was atrial fibrillation. The subcostal and suprasternal views were technically difficult. CONCLUSIONS: 1. Mild concentric left ventricular hypertrophy with normal regional left ventricular (LV) wall motion and wall thickening. Normal LV systolic function. Left ventricular ejection fraction (LVEF) 60% by visual estimate. Unable to determine LV diastolic function in the setting of atrial fibrillation. 2. Moderate left atrial dilatation. 3. Suggestive of mild elevation of estimated right ventricle systolic pressure. Mild right ventricle hypertrophy with normal right ventricle size and systolic function. Suggestive of mild right atrial dilatation. 4. Very mild aortic valve sclerosis of a 3-cusp aortic valve. No aortic regurgitation.
[2019-02-19] MEDS ORDERED: LIDOCAINE 2% INJ 100 MG/5 ML SDV (FOR ANES.) As Ordered ONE (16:55)
[2019-02-19] MEDS ORDERED: ONDANSETRON 4MG/2ML VIAL (J2405) As Ordered ONE (16:55)
[2019-02-19] MEDS ORDERED: PROPOFOL 200 MG/20 ML VIAL As Ordered ONE (16:55)
[2019-02-19] MEDS ORDERED: MIDAZOLAM INJ 2 MG/2 ML VIAL (J2250) As Ordered ONE (16:56)
[2019-02-19] MEDS ORDERED: fentaNYL 100 MCG/2 ML INJECTION (J3010) As Ordered ONE (16:57)
[2019-02-19] MEDS ORDERED: ceFAZolin 2 GM/D5W 50 ML IV BAG (J0690 PER 500MG) As Ordered ONE (17:45)
[2019-02-19] MEDS ORDERED: KETAMINE HCL 200 MG/20 ML VIAL As Ordered ONE (18:07)
--- NOTE | 2019-02-19 19:10 | CR ---
DATE OF CONSULTATION: 02/19/2019 CARDIOLOGY CONSULTATION REFERRING PHYSICIAN: Salomón Beckham MD REASON FOR CONSULTATION: Tachycardia-bradycardia syndrome, assess for placement of permanent pacemaker. HISTORY OF THE PRESENT ILLNESS: Mr. Kobe Shaw Jr is a very pleasant 68-year-old man with obesity and chronic atrial fibrillation, systemic hypertension, and hyperlipidemia. He is a long-time patient of Dr. Gwendolyn Roque, and Dr. Roque spoke to me requesting I place a pacemaker in this patient, when he called me yesterday afternoon to give me heads up that this patient was coming to the hospital. The patient was just recently on an event monitor and was noted to have some severe pauses on the vent monitor over 6 seconds, according to what I was told by Dr. Roque The patient was instructed yesterday to stop Eliquis (his last dose was yesterday morning) and to discontinue bisoprolol. He was instructed to go to the emergency room, which he did yesterday evening for admission so he could have a permanent pacemaker. The patient reports he had an episode of syncope that was very brief when he was in a hotel room approximately 2 weeks ago. He fell back on the hotel bed and did not injure himself and was out for a very brief period of time. He has had occasional episodes of severe transient lightheadedness. He reports chronic exertional shortness of breath that occurs with low levels of activity, and this has not changed recently. No leg or ankle edema. No pain, pressure, tightness, squeezing, or heaviness with or without exertion. No palpitations. No embolic events. No intermittent claudication. ALLERGIES: No known adverse drug reactions. He is allergic to OTTO NUTS. MEDICATIONS PRIOR TO ADMISSION: - albuterol two puffs every 4 hours as needed - Eliquis 5 mg twice a day - atorvastatin 10 mg daily - bisoprolol 5 mg daily - Alphagan P one drop both eye twice a day - vitamin D2 5000 units by mouth once a week on Tuesdays - fenofibrate 134 mg daily - hydrochlorothiazide 25 mg daily - ibuprofen 400 mg daily as needed for pain - levocetirizine 5 mg nightly - lisinopril 20 mg daily - metformin 500 mg daily - metformin 1000 mg daily at supper - terazosin 10 mg nightly - Travatan Z one eye drop both eyes nightly PATIENT'S CURRENT MEDICATIONS IN HOSPITAL ARE FOLLOWS: - cefazolin 2 grams IV nutritional yeast supervisor to operating room (OR) for pacemaker. - lisinopril 20 mg daily - atropine 0.5 mg IV every 1 hour as needed for bradycardia - nicotine 14 mg patch daily as needed - hydrochlorothiazide 25 mg daily - Alphagan P one drop both eyes twice a day - acetaminophen 650 mg every 4 hours as needed for pain - Ventolin two puffs every 4 hours as needed - Milk of Magnesia 30 mL daily as needed by mouth - Mylanta 10 mL daily as needed - atorvastatin 10 mg nightly - terazosin 10 mg nightly - Xalatan 0.005% one drop both eyes nightly PAST MEDICAL AND SURGICAL HISTORY: Chronic atrial fibrillation. Systemic hypertension. Mixed hyperlipidemia. Obesity due to excess calories. Type 2 diabetes. Chronic obstructive pulmonary disease (COPD). Glaucoma. Tonsillectomy. Lower dentures, edentulous. Left upper leg numbness. Cigarette smoker. Bronchitis. Prior pneumonia. Sleep apnea (does not wear CPAP). Hemorrhoids. Gastroesophageal reflux disease (GERD). Remote history of testicular infection. BPH. Urinary retention. Left hip dysplasia. Bilateral heel bone spurs. Arthritis. Degenerative disc disease. Status post bilateral carpal tunnel surgery. Previous left wrist fracture. Degenerative disc disease in his back. Depression. Previous polio virus vaccination. Previous MMR vaccination. Eczema. FAMILY HISTORY: Noncontributory. REVIEW OF SYSTEMS: As per history of the present illness and past history above. Ten-point review of systems was otherwise negative. PHYSICAL EXAMINATION: Pleasant obese man who is not in any respiratory or psychologic distress. Height 71 inches, weight 123.2 kg, body mass index (BMI) 37.9. Temperature 97.3, pulse 56 (irregularly irregular), respiratory rate 16, blood pressure 146/92, oxygen saturation 96% on room air. No conjunctival pallor, scleral icterus or xanthomas. Edentulous. Lower denture is present. No upper dentures. Oral mucosa moist and without pallor or cyanosis. Jugular venous pulsations were at 3 cm. Trachea midline. No palpable thyroid. No clubbing, nail bed cyanosis, or splinter hemorrhages. No skin lesions, skin pallor, or icterus. Oriented to person, place and time. Mood and affect normal. Curvature of the spine normal. Gait was not tested as the patient is presently on bed rest due to episodes of ventricular asystole. Gross motor strength and tone appeared normal. No muscle atrophy, fasciculations, or tremors. Respiratory expansion effort was fair. No crackles or wheezes. No dullness to percussion. No palpable apex beat. No left parasternal lifts, heaves, thrills, or palpable heart sounds. First heart sound was variable in intensity. Second heart sound was diminished. No S3. No murmurs appreciated. Carotids were normal in volume and contour and without bruits. No palpable abdominal aorta but difficult to palpate due to abdominal obesity. No abdominal bruits. Femoral pulses normal. Pedal pulses normal. 2 mm of pitting edema was present at mid and distal tibial level and over the medial malleoli bilaterally. No varicose veins. Abdomen was obese, soft, and nontender with normal bowel sounds. No hepatosplenomegaly or other organomegaly. Liver span difficult to assess due to abdominal obesity. Stool for occult blood not presently indicated. INVESTIGATIONS: Laboratory work 02/18/2019 was reviewed: WBC 12.0, hemoglobin 15.6, hematocrit 46.2, platelets 272, PT/INR 0.98, PTT 30.3. Sodium 139, potassium 3.7, chloride 104, CO2 29, BUN 15, creatinine 1.01, estimated GFR greater than 60, glucose 203, calcium 9.4, CPK 186, CPK-MB 5.0, percent CPK-MB 2.85%, troponin I less than 0.02, NT-Pro-BNP 254. I have independently visualized the patient's portable upright AP chest x-ray acquired 02/18/2019 at 7:40 p.m. Difficult to district associate judge for cardiomegaly given the portable AP technique. Suspect cardiomegaly. Enlargement of the left and right pulmonary arteries. No pulmonary vascular redistribution. No interstitial or alveolar edema. Costophrenic angles were clear. No pleural thickening. No interstitial or alveolar edema. ECG 02/18/2019 at 1929 hours shows atrial fibrillation, ventricular rate 73 beats per minute (BPM), poor R wave progression, nonspecific ST-T abnormalities, borderline low limb lead voltages. Rhythm strip recorded in the intensive care unit (ICU) this morning at 6:40 a.m. on 02/19/2019 shows a 9.2 second episode of ventricular asystole with underlying baseline of atrial fibrillation only. ASSESSMENT AND PLAN: 1. Sick sinus syndrome/tachycardia-bradycardia syndrome. Patient requires use of beta khris for control of atrial fibrillation with rapid ventricular response. His beta khris has been held, and despite the beta khris being held, he has been demonstrating ongoing episodes of high-grade atrioventricular (AV) block with a 9.2 second episode of ventricular asystole observed this morning. He has had a recent episode of syncope. I agree with Dr. Roque that this patient meets criteria for implantation of a single-chamber pacemaker. Single-chamber pacemaker implantation was explained to the patient, including the alternatives of no pacemaker (increased risk for syncope and its consequences). Risks of pacemaker implantation discussed with the patient included but not all inconclusive: Infection (1-2%), pneumothorax (1%), bleeding, poor wound healing, cardiac arrhythmias, adverse drug reaction, lead dislodgement, cardiac perforation with cardiac tamponade (12/999). I believe this patient's risk of bleeding is higher because of recent use of Eliquis (last dose yesterday morning). His risk of infection I believe is also higher because he has type 2 diabetes. Patient signed the consent form, and the plan is to proceed to the operating room some time today when the OR becomes available. 2. Intermittent complete heart block. The patient has been demonstrating episodes of intermittent advanced AV block with a recent documentation of a 6 second episode of ventricular asystole on an event monitor as an outpatient and this morning off a beta khris with a 9.2 second episode of ventricular asystole. As noted above, the plan is to proceed with implantation of a permanent pacemaker. 3. Chronic atrial fibrillation. Once the patient has a permanent pacemaker, he can be placed back on bisoprolol. Once he has had a permanent pacemaker, he can be placed back on Eliquis at least 12 hours postoperatively. 4. Systemic hypertension. Mostly variable blood pressure control of the systolic blood pressure observed in the hospital so far. The plan is to get the patient back on beta khris once he has had his permanent pacemaker placed. I will not make any changes to his other antihypertensive agents, which consist of hydrochlorothiazide and lisinopril. He is also on terazosin. The additional compelling indication for terazosin is BPH. 5. Mixed hyperlipidemia. Patient is maintained on fenofibrate and on atorvastatin 10 mg nightly. He has type 2 diabetes. Long-term pharmacotherapy of mixed hyperlipidemia will remain with this patient's primary care provider (PCP) and with his attending complaint supervisor, Dr. Gwendolyn Roque. I suggest a low-fat, whole-food, plant-based diet. 6. Obesity due to excess calories. This patient's obesity is associated with systemic hypertension, chronic atrial fibrillation, and mixed hyperlipidemia. I recommend a low-fat, whole-food, plant-based diet.
[2019-02-19] MEDS ORDERED: HYDROMORPHONE HCL 0.5 MG/ 0.5 ML SYRINGE (J1170 PER 1) IV PRN (19:30)
[2019-02-19] MEDS ORDERED: PERCOCET 5MG/325MG TAB PO PRN (19:30)
[2019-02-19] MEDS ORDERED: fentaNYL 100 MCG/2 ML INJECTION (J3010) IV PRN (19:30)
[2019-02-19] MEDS ORDERED: ONDANSETRON 4MG/2ML VIAL (J2405) IV PRN (19:30)
--- NOTE | 2019-02-19 20:16 | REP ---
HISTORY: Status post pacemaker insertion. COMPARISON: A portable exam obtained yesterday. The technique utilized in obtaining the radiograph has magnified the cardiac silhouette and accentuated the interstitial markings. Since the last examination a single chamber bipolar pacemaker device has been placed. The lead is contiguous and appropriate. There are no other significant changes from the prior exam. There is cardiomegaly. There is no pneumothorax. There is no change in the osseous structures. IMPRESSION: Status post pacemaker as described above. Electronically Signed by Isaiah Heredia DO 02/20/2019 04:36 P
[2019-02-19] MEDS: ATORVASTATIN 10 MG TAB PO SCH ×2 (20:20)
--- NOTE | 2019-02-19 20:20 | REP ---
HISTORY: Fluoroscopy provided Dr. Peterson during pacemaker insertion. 5 minutes and 38 seconds of fluoroscopy was provided Dr. Peterson for the single chamber bipolar pacemaker insertion. Electronically Signed by Isaiah Heredia DO 02/20/2019 04:37 P
--- NOTE | 2019-02-19 20:35 | RO ---
DATE OF PROCEDURE: 02/19/2019 PREPROCEDURE DIAGNOSIS: Sick sinus syndrome/tachycardia-bradycardia syndrome. Advanced atrioventricular (AV) block with documentation of ventricular asystole up to 9.2 seconds. POSTPROCEDURE DIAGNOSIS: Sick sinus syndrome/tachycardia-bradycardia syndrome. Advanced atrioventricular block with documentation of ventricular asystole up to 9.2 seconds. FINDINGS: Sick sinus syndrome/tachycardia-bradycardia syndrome. Advanced atrioventricular block with documentation of ventricular asystole up to 9.2 seconds. PROCEDURE: Implantation of a permanent single-chamber pacemaker (Medtronic). SURGEON: Phillip Peterson MD LEATHER COLORER: None. ANESTHESIA: Lidocaine 1% local and monitored anesthetic care. No specimens. Estimated blood loss: Less than 5 mL. No blood products replaced. No drains. No complications. DESCRIPTION OF PROCEDURE: The patient was prepped and draped over the left pectoral region. 3M Ioban film was applied. Lidocaine 1% was used for local anesthetic. A left subclavian venogram was performed using a mixture of three parts Isovue to one part normal saline with a total volume of 30 mL injected via a left antecubital vein. This was used in real time to help gain venous access by percutaneous technique using a micropuncture needle into the extrathoracic portion of the left subclavian vein. This was then guidewire exchanged for a guidewire that came with the 7-Romanian sheath. Next, an incision approximately 2-1/2 inches in length was made 1 cm below the skin entry point of the guidewire and approximately parallel to the left clavicle using a PEAK PlasmaBlade. The PEAK PlasmaBlade was then used to dissect through the fatty layer down to the level of the pectora muscle. The pacemaker pocket was then formed in a caudal direction using blunt dissection using two fingers to separate the fibrous Joshua's fascia from the prepectoral fascia. Next, the guidewire was pulled through the skin into the incision site. A 7-Romanian sheath with introducer was then placed over the guidewire and advanced into the vein. The guidewire and introducer portion were removed leaving the sheath in place. The pacemaker lead was placed into the 7-Romanian sheath and advanced under fluoroscopic guidance into the vicinity of the right ventricle apex where it was secured with a total of 11 turns. This position was found to be electrically and anatomically satisfactory and no diaphragm stimulation could be palpated on either side at 10 volts high output pacing. The sheath was then broken apart and removed. The ventricle lead was then secured to the pectoral muscle using the supplied tie-down sleeve using two individual sutures consisting of #0 Ethibond to secure it to the pectoral muscle to stop bleed back from the subclavian vein into the pocket where the guidewire penetrated into the muscle. I used a Moreno suture using #0 Ethibond. Next, another #0 Ethibond suture was placed in the pectoral muscle to serve as the tie-down for the pacemaker pulse generator. I took a medium size TYRX antimicrobial envelope and cut it into four pieces, which were placed into the pacemaker packet. Next, the terminal pin of the pacing lead was placed into the header and secured with the set screw being tightened with a screwdriver. The excess lead material was then coiled underneath the pacemaker pulse generator and placed along with the pacemaker pulse generator into the pacemaker pocket. The pacemaker pulse generator was then secured to the pectoral muscle with the previously placed #0 Ethibond suture. The deep layer was closed using individual sutures consisting of #2-0 Vicryl. A few additional #3-0 Vicryl sutures were used to help approximate the more superficial layer. The skin was then closed using tg. The patient tolerated the procedure well without any immediate complications. Bactroban ointment was placed across the incision line, followed by Telfa, followed by a bio-occlusive (Op-Site) dressing, followed by a pressure dressing using foam tape. A left arm sling was then placed before the patient left the operating room. The pacemaker pulse generator implanted was a Medtronic Adela XT SR MRI SureScan with model W1SR01 with serial number [id number]. The pacemaker lead implanted was a Medtronic model 4076-58 cm with serial number [id number]. Final testing in the operating room through the pulse analyzer with the lead in bipolar configuration showed a capture threshold of 0.3 volts at 0.50 milliseconds with lead impedance of 621 ohms and R wave amplitude of 6.0 millivolts and slew rate of 4.0 volts per second.
[2019-02-20] VITALS: BP 100/51
[2019-02-20 04:00] VITALS: BP 133/75
[2019-02-20 07:55] LABS: HEMATOCRIT 48.2 % (42.0-52.0); HEMOGLOBIN 16.1 g/dl (13.5-17.5); MEAN CORPUSCULAR HEMOGLOBIN 30.7 pg (27.0-33.0); MEAN CORPUSCULAR HGB CONC 33.4 g/dl (32.0-36.5); PLATELET COUNT, AUTOMATED 265 10^3/uL (150-450); RED BLOOD COUNT 5.24 10^6/uL (4.30-6.10); WHITE BLOOD COUNT 12.6 10^3/uL (4.0-10.0)
[2019-02-20 08:00] VITALS: BP 116/62
[2019-02-20 08:36] LABS: BLOOD UREA NITROGEN 15 MG/DL (7-18); CALCIUM LEVEL 8.9 MG/DL (8.8-10.2); CARBON DIOXIDE LEVEL 30 MEQ/L (21-32); CHLORIDE LEVEL 105 MEQ/L (98-107); CREATININE FOR GFR 0.98 MG/DL (0.70-1.30); GLOMERULAR FILTRATION RATE > 60.0 (>49); GLUCOSE, FASTING 150 MG/DL (70-100); POTASSIUM SERUM 4.3 MEQ/L (3.5-5.1); SODIUM LEVEL 140 MEQ/L (136-145)
[2019-02-20] MEDS ORDERED: LISINOPRIL 20 MG TAB PO SCH (09:00)
[2019-02-20] MEDS ORDERED: hydroCHLOROthiazide 12.5 MG CAPSULE PO SCH (09:00)
[2019-02-20] MEDS ORDERED: ASCORBIC ACID 250 MG TAB PO SCH (09:00)
--- NOTE | 2019-02-20 09:55 | REP ---
Chest two views HISTORY: Pacemaker insertion Comparison: 02/19/2019 A minimal increase in interstitial markings is present in the lower lobes consistent with chronic interstitial change. The heart is normal in size. The pulmonary vasculature is normal in appearance. Degenerative change is present in the thoracic spine. A pacemaker is present. IMPRESSION: Bibasilar chronic interstitial change. Electronically Signed by Jameson Kirby MD 02/20/2019 09:46 A
[2019-02-20 09:58] VITALS: BP 116/62
[2019-02-20] MEDS: BRIMONIDINE 0.1% OPHTH SOLN 5 ML OU SCH (09:58)
--- NOTE | 2019-02-20 14:26 | DS.PDOC ---
Discharge Summary General Date of Admission February 18, 2019 at 21:26 Date of Discharge 02/20/19 Specialist/Consultants Involve Dr. Peterson of Cardiology Discharge Summary PROCEDURES PERFORMED DURING STAY: s/p Single Chamber Pacemaker placement by Dr. 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 HISTORY OF PRESENT ILLNESS: . 68-year-old male with history of atrial fibrillation, dyslipidemia, hypertension, diabetes, and BPH was sent to the ER by his manager power after he was noted to have multiple pauses on a Holter monitor that the patient was wea ring as an outpatient. The patient apparently had been having episodes of lightheadedness and syncope prior, and had the Holter ordered for further evaluation. The patient denied any complaints of fevers, chills, chest pain, palpitations, any worsening of his underlying chronic shortness of breath, abdominal pain, or any nausea/vomiting/diarrhea. In the ER, the patient was noted to be in atrial fibrillation. A consult was placed for cardiology for pacemaker placement. The patient was admitted to the hospitalist service for further evaluation and management. During hospitalization, the patient did demonstrate ongoing episodes of high grade AV block with a 9.2 second episode of ventricular asystole. It appears that the patient was sleeping during this time and was otherwise asymptomatic. A single-chamber pacemaker was placed by cardiology on 02/19/19. Since then, the patient has been doing well and has had no acute complaints. Cardiology has recommended that the patient can be discharged home and resume his Eliquis and Bisoprolol therapy as prescribed. I have advised patient to follow-up with his primary care doctor and manager power within one week. He is to return to the ER for any acute emergencies. DISCHARGE MEDICATIONS: Please see below. ALLERGIES: Please see below. PHYSICAL EXAMINATION ON DISCHARGE: VITAL SIGNS: Please see below. General Exam: Positive: Alert, Cooperative, No Acute Distress ENT Exam: Positive: Atraumatic, Mucous membr. moist/pink Chest Exam: Positive: Clear to auscultation, Normal air movement Heart Exam: Positive: Normal rate, normal S1, S2 Telemetry: Positive: Atrial fibrillation Abdomen Exam: Positive: Soft; Negative: Tenderness Extremity Exam: Negative: Tenderness, Swelling Neuro Exam: Positive: Normal Speech Psych Exam: Positive: Mental status NL, Mood NL, Oriented x 3 LABORATORY DATA: Please see below. IMAGING: Chest one-view HISTORY: Chest pain Comparison: 07/04/2015 A minimal increase in interstitial markings is present in the lower lobes consistent with chronic interstitial change. . The heart is normal in size. The pulmonary vasculature is normal in appearance. Impression: Bibasilar chronic interstitial change. HISTORY: Status post pacemaker insertion. COMPARISON: A portable exam obtained yesterday. The technique utilized in obtaining the radiograph has magnified the cardiac silhouette and accentuated the interstitial markings. Since the last examination a single chamber bipolar pacemaker device has been placed. The lead is contiguous and appropriate. There are no other significant changes from the prior exam. There is cardiomegaly. There is no pneumothorax. There is no change in the osseous structures. IMPRESSION: Status post pacemaker as described above. Chest two views HISTORY: Pacemaker insertion Comparison: 02/19/2019 A minimal increase in interstitial markings is present in the lower lobes consistent with chronic interstitial change. The heart is normal in size. The pulmonary vasculature is normal in appearance. Degenerative change is present in the thoracic spine. A pacemaker is present. IMPRESSION: Bibasilar chronic interstitial change. PROGNOSIS: Fair ACTIVITY: As tolerated. DIET: 2 g low sodium diet DISCHARGE PLAN: DISPOSITION: 01 Home, Self-Care. DISCHARGE INSTRUCTIONS: I have advised patient to follow-up with his primary care doctor and c ardiologist within one week. He is to return to the ER for any acute emergencies. DISCHARGE CONDITION: Stable. TIME SPENT ON DISCHARGE: Greater than 30 minutes. Vital Signs/I&Os Vital Signs Date Time Temp Pulse Resp B/P (MAP) Pulse Ox O2 Delivery O2 Flow Rate FiO2 02/20/19 09:58 116/62 02/20/19 08:00 98.2 86 17 93 02/20/19 04:00 3.0 02/18/19 23:16 Room Air I&O- Last 24 Hours up to 6 AM 02/20/19 06:00 Intake Total 2015 ml Output Total 900 ml Balance 1115 ml Laboratory Data Labs 24H Laboratory Tests 2 02/19/19 23:31: Bedside Glucose (Misc Panel) 229H 02/20/19 05:15: Bedside Glucose (Misc Panel) 163H 02/20/19 07:44: Nucleated Red Blood Cells % (auto) 0.0, Anion Gap 5L, Glomerular Filtration Rate > 60.0, Blood Urea Nitrogen 15, Creatinine 0.98, Sodium Level 140, Potassium Level 4.3, Chloride Level 105, Carbon Dioxide Level 30, Calcium Level 8.9 CBC/BMP Laboratory Tests 02/20/19 07:44 Red Blood Count 5.24, Mean Corpuscular Volume 92.0, Mean Corpuscular Hemoglobin 30.7, Mean Corpuscular Hemoglobin Concent 33.4, Red Cell Distribution Width 13.8, Calcium Level 8.9 FSBS Laboratory Tests Test 02/19/19 23:31 02/20/19 05:15 Range/Units Bedside Glucose (Misc Panel) 229 163 80-115 MG/DL Discharge Medications Scheduled Apixaban (Eliquis) 5 Mg Tab, 5 MG PO BID, (Reported) Atorvastatin Calcium (Atorvastatin Calcium) 10 Mg Tab, 10 MG PO QHS, (Reported) Bisoprolol Fumarate (Bisoprolol Fumarate) 5 Mg Tab, 5 MG PO DAILY, (Reported) Brimonidine Tartrate (Alphagan P) 0.1% 5ML Drops, 1 DROP OU BID, (Reported) WITH BREAKFAST AND SUPPER Ergocalciferol (Vitamin D2) (Vitamin D2) 50,000 Unit Capsule, 50,000 UNIT PO QWEEK, (Reported) TUESDAYS Fenofibrate,Micronized (Fenofibrate) 134 Mg Cap, 134 MG PO DAILY, (Reported) TAKES AT 1200 Hydrochlorothiazide (Hydrochlorothiazide) 25 Mg Tablet, 25 MG PO DAILY, (Reported) Levocetirizine Dihydrochloride (Levocetirizine Dihydrochloride) 5 Mg Tablet, 5 MG PO QHS, (Reported) Lisinopril (Lisinopril) 20 Mg Tab, 20 MG PO DAILY, (Reported) TAKES AT 1200 Metformin HCl (Metformin HCl) 500 Mg Tab, 500 MG PO DAILY, (Reported) Metformin HCl (Metformin HCl) 500 Mg Tablet, 1,000 MG PO QPM, (Reported) WITH SUPPER Terazosin Hcl (Terazosin HCl) 10 Mg Capsule, 10 MG PO QHS, (Reported) Travoprost (Travatan Z) 50 Drop/2.5 Ml Soln, 1 DROP OU QHS, (Reported) Scheduled PRN Albuterol Sulfate (Proair Hfa) 8.5 Gm Hfa.aer.ad, 2 PUFF INH Q4H PRN for SHORTNESS OF BREATH, (Reported) Ibuprofen (Ibu-200) 200 Mg Tablet, 400 MG PO DAILY PRN for PAIN, (Reported) Allergies Coded Allergies: hazelnut (Verified Allergy, Mild, 02/18/19) itchy throat MARIE CARLIN MD February 20, 2019 14:26
--- NOTE | 2019-02-20 16:25 | ECGEPIP ---
Stationary ECG Study [facility] Test Date: 2019-02-19 Pat Name: TIM FLOYD JR Department: Room: [place] [address] Gender: M [employer] Light Technician: JAY JAY : 1950 Requested By: Phillip Peterson Order Number: [id number] Reading MD: William Perez Measurements Intervals [place] Rate: 71 P: [place]: 0 QRS: 81 QRSD: 102 T: -5 QT: 409 QTc: 447 Interpretive Statements Atrial fibrillation with controlled ventricular response Low QRS complex voltage in the limb leads Delayed anterior R wave progression Nonspecific T wave abnormality No significant change since prior tracing of 02/18/2019 Electronically Signed On 02-20-2019 16:24:57 EDT by William Perez
[2019-02-20] MEDS ORDERED: APIXABAN 5 MG TAB (ELIQUIS) PO SCH (21:00)
== END 2019-02-20 13:55 | disposition home or self-care (01) | DRG 243 ==
LOC: M ED 19:18 → M ED INP 21:26 → M PCU 23:30 → M ICU 02-19 03:45
PROVIDERS: ADMIT Internal Medicine; ATTEND Internal Medicine
PROC: 02HK3JZ Insertion of Pacemaker Lead into Right Ventricle, Percutaneous Approach (ICD-10-PCS; 2019-02-19)
PROC: 0JH604Z Insertion of Pacemaker, Single Chamber into Chest Subcutaneous Tissue and Fascia, Open Approach (ICD-10-PCS; principal; 2019-02-19 17:00)
DX: I49.5 Sick sinus syndrome (principal); I44.2 Atrioventricular block, complete; I48.2 Chronic atrial fibrillation; I10 Essential (primary) hypertension; Z79.01 Long term (current) use of anticoagulants; Z79.84 Long term (current) use of oral hypoglycemic drugs; Z79.899 Other long term (current) drug therapy; F17.210 Nicotine dependence, cigarettes, uncomplicated; Z91.018 Allergy to other foods; E11.9 Type 2 diabetes mellitus without complications; E66.09 Other obesity due to excess calories; E78.2 Mixed hyperlipidemia; J44.9 Chronic obstructive pulmonary disease, unspecified; H40.9 Unspecified glaucoma; G47.30 Sleep apnea, unspecified; K21.9 Gastro-esophageal reflux disease without esophagitis; N40.1 Benign prostatic hyperplasia with lower urinary tract symptoms; R33.9 Retention of urine, unspecified; F32.9 Major depressive disorder, single episode, unspecified; L30.9 Dermatitis, unspecified; Z68.37 Body mass index [BMI] 37.0-37.9, adult

== ENCOUNTER → 2019-03-03 | Outpatient (CLI) | payer MEDICARE, BC, OTHER ==
[~2019-03-03] MED LIST changes: +BRIM1OPD OU; +HYDR25TAB PO; +IBUP200T45 PO; +LEVOTAB10 PO; +METF-839 PO; +PROAAER10 INH; +TERA10CA3 PO; +VITA500045 PO
--- NOTE | 2019-03-05 12:28 | SLEEPCENT ---
DATE OF PROCEDURE: 03/03/2019 ORDERED BY: Dr. Suh Nocturnal polysomnography was performed for evaluation of sleep physiology in this patient with a history known prior history of obstructive sleep apnea syndrome. 8 hours and 14 minutes of data were reviewed. There were 344 minutes of sleep identified. Sleep latency was normal at 9.5 minutes. Rapid eye movement (REM) latency was delayed at 136 minutes. Sleep architecture was severely fragmented with poor sleep progression. Overall sleep efficiency 70.8%. The electrocardiogram showed a sinus rhythm with small complexes. Average heart rate 70 beats per minute. Electroencephalogram (EEG) showed normal waveforms for awake and sleep. There were 146 respiratory events identified of 10 seconds in duration or greater for an apnea-hypopnea index of 25.4. The events were associated with oxygen desaturations into the low 80s and having clearly established the presence of obstructive sleep apnea syndrome testing was stopped shortly after midnight for the application of pressure therapy. The patient was fit with a ResMed Quattro full-face mask of medium size; 5 cm of water pressure were applied to the circuit and the lights were again extinguished. The patient fell quickly back to sleep and sleep progression was good. There was evidence of REM rebound. Optimal CPAP pressure was found to be 15 cm. Remaining measures of sleep physiology were normal. IMPRESSION: Obstructive sleep apnea syndrome (G47.33). Apnea-hypopnea index 25.4. RECOMMENDATIONS: Nightly use of pressure therapy 15 cm of water.
== END ==
LOC: M SLEEP 19:39
PROVIDERS: ATTEND Internal Medicine Pulmonary Disease
DX: G47.33 Obstructive sleep apnea (adult) (pediatric) (principal)

== ENCOUNTER → 2019-03-31 | Outpatient (CLI) | payer MEDICARE, BC, OTHER ==
--- NOTE | 2019-03-31 09:39 | REP ---
Complete abdominal sonography: History: Increased white blood cell count. Chronic leukocytosis. Comparison CT study is from January 06, 2016. Comparison renal sonography February 23, 2008. Sonographic findings: Scanning through right upper quadrant of the abdomen demonstrates a normal sized thin-walled gallbladder without evidence of stone or polyp. Common bile duct is upper normal at 0.8 cm in greatest diameter. No focal liver lesion is seen. There is poor insonation of the liver suggesting some degree of fatty infiltration. A normal caliber aorta is seen, 2.6 cm in AP dimension. The pancreas is largely obscured by abdominal gas. There is no evidence of ascites. Exam quality is inhibited generally due to patient body habitus. The spleen is normal in size homogeneous in texture in the left upper quadrant. 11.4 cm greatest diameter. Renal cortical echogenicity pattern is normal and renal contours are smooth bilaterally. 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 Its dimensions are 12.3 x 4.4 x 5.6 cm. The left kidney measures 15.0 x 6.3 x 6.2 cm. There are bilateral renal cysts. In the right kidney mid pole region there is a 1.1 cm cyst and a 1.6 cm cyst. In the upper pole of the left kidney there is a 4.8 cm cyst. At mid pole level on the left kidney there is a 1.7 cm cyst. There is a peripelvic cyst in the lower pole of the left kidney measuring 2.0 cm and an upper pole parapelvic cyst measures 2.6 cm. There is no evidence of hydronephrosis or mass. Impression: Bilateral renal cysts. 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 Fatty infiltration of the liver with poor visualization of the liver. Exam quality generally inhibited by patient body habitus. Electronically Signed by Nash Marquez MD 03/31/2019 09:46 A
== END ==
LOC: M RAD 07:57
PROVIDERS: ATTEND Internal Medicine Hematology & Oncology
DX: N20.0 Calculus of kidney (principal); K76.0 Fatty (change of) liver, not elsewhere classified; Q63.2 Ectopic kidney

== ENCOUNTER → 2019-05-04 | Outpatient (REF) | payer MEDICARE, OTHER ==
[2019-05-04 14:06] LABS: BASO # 0.1 10^3/uL (0.0-0.2); BASO % 0.9 % (0.0-1.0); EOS # 0.5 10^3/uL (0.0-0.50); HEMATOCRIT 44.6 % (42.0-52.0); LYMPH # 2.3 10^3/uL (1.5-4.5); LYMPH % 19.5 % (24.0-44.0); MEAN CORPUSCULAR HEMOGLOBIN 30.9 pg (27.0-33.0); MEAN CORPUSCULAR HGB CONC 33.6 g/dl (32.0-36.5); MONO # 0.9 10^3/uL (0.0-0.8); MONO % 7.8 % (0.0-5.0); NEUTROPHILS # 7.8 10^3/uL (1.8-7.7); NEUTROPHILS % 67.4 % (36.0-66.0); PLATELET COUNT, AUTOMATED 253 10^3/uL (150-450); RED BLOOD COUNT 4.85 10^6/uL (4.30-6.10); WHITE BLOOD COUNT 11.6 10^3/uL (4.0-10.0)
[2019-05-04 14:16] LABS: ALBUMIN 3.7 GM/DL (3.2-5.2); ALT/SGPT 51 U/L (12-78); BILIRUBIN,TOTAL 0.5 MG/DL (0.2-1.0); BLOOD UREA NITROGEN 14 MG/DL (7-18); CALCIUM LEVEL 9.2 MG/DL (8.8-10.2); CARBON DIOXIDE LEVEL 27 MEQ/L (21-32); CHLORIDE LEVEL 107 MEQ/L (98-107); CHOLESTEROL LEVEL 105 MG/DL (<200); CREATININE FOR GFR 0.91 MG/DL (0.70-1.30); GLOMERULAR FILTRATION RATE > 60.0 (>49); GLUCOSE, FASTING 155 MG/DL (70-100); HDL CHOLESTEROL 28 MG/DL (>40); LDL CHOLESTEROL 41 MG/DL (<100); NON-HDL-C 77 MG/DL; POTASSIUM SERUM 4.2 MEQ/L (3.5-5.1); SODIUM LEVEL 142 MEQ/L (136-145); TOTAL PROTEIN 6.3 GM/DL (6.4-8.2); TRIGLYCERIDES LEVEL 182 MG/DL (<150)
[2019-05-04 14:21] LABS: TOTAL 25(OH) VITAMIN D 46.2 NG/ML (30.0-100.0)
== END ==
LOC: M SFHCSACK 09:46
PROVIDERS: ATTEND Physician Assistant
DX: D72.829 Elevated white blood cell count, unspecified (principal); E78.2 Mixed hyperlipidemia; E11.9 Type 2 diabetes mellitus without complications; E55.9 Vitamin D deficiency, unspecified

== ENCOUNTER → 2019-08-19 | Outpatient (REF) | payer MEDICARE, OTHER ==
[~2019-08-19] MED LIST changes: -BISO5TAB5 PO; +BISO5TAB9 PO; -OMEP40CA2 PO; +OMEP40CA97 PO
[2019-08-19 14:22] LABS: ALBUMIN 4.1 GM/DL (3.2-5.2); ALT/SGPT 63 U/L (12-78); BILIRUBIN,TOTAL 1.1 MG/DL (0.2-1.0); BLOOD UREA NITROGEN 15 MG/DL (7-18); CARBON DIOXIDE LEVEL 31 MEQ/L (21-32); CHLORIDE LEVEL 101 MEQ/L (98-107); CHOLESTEROL LEVEL 126 MG/DL (<200); CHOLESTEROL RISK RATIO 3.937 (<5); CREATININE FOR GFR 1.21 MG/DL (0.70-1.30); GLOMERULAR FILTRATION RATE > 60.0 (>49); GLUCOSE, FASTING 139 MG/DL (70-100); HDL CHOLESTEROL 32 MG/DL (>40); LDL CHOLESTEROL 42 MG/DL (<100); NON-HDL-C 94 MG/DL; POTASSIUM SERUM 4.3 MEQ/L (3.5-5.1); SODIUM LEVEL 138 MEQ/L (136-145); TOTAL PROTEIN 7.3 GM/DL (6.4-8.2); TRIGLYCERIDES LEVEL 260 MG/DL (<150)
[2019-08-19 14:27] LABS: BASO # 0.1 10^3/uL (0.0-0.2); BASO % 0.9 % (0.0-1.0); EOS # 0.4 10^3/uL (0.0-0.5); EOS % 3.6 % (0.0-3.0); HEMATOCRIT 51.2 % (42.0-52.0); HEMOGLOBIN 16.9 g/dl (13.5-17.5); LYMPH # 2.3 10^3/uL (1.5-5.0); MEAN CORPUSCULAR HEMOGLOBIN 31.3 pg (27.0-33.0); MEAN CORPUSCULAR VOLUME 94.8 fl (80.0-96.0); MONO # 0.9 10^3/uL (0.0-0.8); NEUTROPHILS # 7.6 10^3/uL (1.5-8.5); NEUTROPHILS % 67.1 % (36.0-66.0); PLATELET COUNT, AUTOMATED 289 10^3/uL (150-450); WHITE BLOOD COUNT 11.3 10^3/uL (4.0-10.0)
== END ==
LOC: M SFHCSACK 08:52
PROVIDERS: ATTEND Physician Assistant
DX: D72.829 Elevated white blood cell count, unspecified (principal); E11.9 Type 2 diabetes mellitus without complications; E78.2 Mixed hyperlipidemia
CPT/HCPCS: 36415; 80053; 80061; 83036; 85025; 90682; G0008

== ENCOUNTER → 2020-04-15 | Outpatient (CLI) | payer MEDICARE, BC, OTHER ==
[~2020-04-15] MED LIST changes: +BISO5TAB14 PO; -BISO5TAB9 PO
--- NOTE | 2020-04-15 11:18 | REP ---
CT CHEST WITHOUT CONTRAST: LOW-DOSE SCREENING EXAM. HISTORY: Tobacco dependency. Comparison is made with prior CT studies, the most recent of which is from March 10, 2019. CT FINDINGS: There is a stable 4 mm noncalcified nodule in the right middle lobe on page 59 of 111 series 201 of today's study. This is benign and unchanged from multiple prior studies. The second previously noted right middle lobe nodule is not visualized today. There are scattered tiny granulomatous calcifications, also unchanged. No new pulmonary nodule or mass lesion is observed. A right heart pacemaker and some vascular calcification are noted. IMPRESSION: Lung-RADS category 2 findings. Repeat screening study recommended in 1 year. Electronically Signed by Nash Marquez MD 04/15/2020 11:28 A
== END ==
LOC: M RAD 07:29
PROVIDERS: ATTEND Internal Medicine Pulmonary Disease
DX: Z12.2 Encounter for screening for malignant neoplasm of respiratory organs (principal); F17.218 Nicotine dependence, cigarettes, with other nicotine-induced disorders; R91.1 Solitary pulmonary nodule; Z95.0 Presence of cardiac pacemaker

== ENCOUNTER → 2020-05-02 | Outpatient (CLI) | payer MEDICARE, BC, OTHER ==
[2020-05-02 10:42] LABS: BASO # 0.1 10^3/uL (0.0-0.2); BASO % 0.8 % (0.0-1.0); EOS # 0.5 10^3/uL (0.0-0.5); EOS % 3.8 % (0.0-3.0); HEMATOCRIT 51.5 % (42.0-52.0); HEMOGLOBIN 17.1 g/dl (13.5-17.5); LYMPH # 2.7 10^3/uL (1.5-5.0); LYMPH % 18.5 % (24.0-44.0); MEAN CORPUSCULAR HEMOGLOBIN 31.1 pg (27.0-33.0); MEAN CORPUSCULAR HGB CONC 33.2 g/dl (32.0-36.5); MEAN CORPUSCULAR VOLUME 93.6 fl (80.0-96.0); MONO # 0.9 10^3/uL (0.0-0.8); MONO % 6.6 % (0.0-5.0); NEUTROPHILS % 69.8 % (36.0-66.0); PLATELET COUNT, AUTOMATED 275 10^3/uL (150-450); WHITE BLOOD COUNT 14.3 10^3/uL (4.0-10.0)
[2020-05-02 11:03] LABS: HEMOGLOBIN A1c 7.6 %
[2020-05-02 11:17] LABS: ALBUMIN 3.8 GM/DL (3.2-5.2); ALT/SGPT 60 U/L (12-78); BILIRUBIN,TOTAL 0.7 MG/DL (0.2-1.0); BLOOD UREA NITROGEN 15 MG/DL (7-18); CALCIUM LEVEL 9.1 MG/DL (8.8-10.2); CARBON DIOXIDE LEVEL 29 MEQ/L (21-32); CHLORIDE LEVEL 104 MEQ/L (98-107); CHOLESTEROL LEVEL 109 MG/DL (<200); CHOLESTEROL RISK RATIO 3.892 (<5); GLOMERULAR FILTRATION RATE > 60.0 (>49); GLUCOSE, FASTING 114 MG/DL (70-100); HDL CHOLESTEROL 28 MG/DL (>40); LDL CHOLESTEROL 35 MG/DL (<100); NON-HDL-C 81 MG/DL; POTASSIUM SERUM 4.1 MEQ/L (3.5-5.1); SODIUM LEVEL 140 MEQ/L (136-145); TOTAL PROTEIN 6.4 GM/DL (6.4-8.2); TRIGLYCERIDES LEVEL 228 MG/DL (<150)
[2020-05-02 12:50] LABS: TOTAL 25(OH) VITAMIN D 71.4 NG/ML (30.0-100.0)
[2020-05-02 15:27] LABS: MAU/CREAT RATIO 13.6 MCG/MG (0.0-30.0)
== END ==
LOC: M PLALAB 08:16
PROVIDERS: ATTEND Nurse Practitioner Adult Health
DX: E11.9 Type 2 diabetes mellitus without complications (principal); Z12.5 Encounter for screening for malignant neoplasm of prostate; E78.2 Mixed hyperlipidemia; E55.9 Vitamin D deficiency, unspecified; I10 Essential (primary) hypertension; Z79.899 Other long term (current) drug therapy
CPT/HCPCS: 36415; 80053; 80061; 82043; 82306; 83036; 85025; G0103

== ENCOUNTER → 2020-10-03 | Outpatient (REF) | payer MEDICARE, OTHER ==
[2020-10-03 13:56] LABS: HEMOGLOBIN A1c 7.4 %
[2020-10-03 14:03] LABS: MALB URINE SIEMENS 22.9 MG/L; MAU/CREAT RATIO 20.2 MCG/MG (0.0-30.0)
[2020-10-03 14:06] LABS: ALBUMIN 3.9 GM/DL (3.2-5.2); ALT/SGPT 58 U/L (12-78); BILIRUBIN,TOTAL 1.1 MG/DL (0.2-1.0); BLOOD UREA NITROGEN 13 MG/DL (7-18); CALCIUM LEVEL 9.4 MG/DL (8.8-10.2); CARBON DIOXIDE LEVEL 32 MEQ/L (21-32); CHLORIDE LEVEL 101 MEQ/L (98-107); CHOLESTEROL LEVEL 132 MG/DL (<200); CHOLESTEROL RISK RATIO 3.771 (<5); GLOMERULAR FILTRATION RATE > 60.0 (>49); GLUCOSE, FASTING 151 MG/DL (70-100); HDL CHOLESTEROL 35 MG/DL (>40); LDL CHOLESTEROL 42 MG/DL (<100); NON-HDL-C 97 MG/DL; POTASSIUM SERUM 4.3 MEQ/L (3.5-5.1); SODIUM LEVEL 139 MEQ/L (136-145); TOTAL PROTEIN 6.5 GM/DL (6.4-8.2); TRIGLYCERIDES LEVEL 274 MG/DL (<150)
== END ==
LOC: M SFHCPLAZ 08:33
PROVIDERS: ATTEND Nurse Practitioner Adult Health
DX: E11.9 Type 2 diabetes mellitus without complications (principal); E78.2 Mixed hyperlipidemia; Z12.5 Encounter for screening for malignant neoplasm of prostate; E55.9 Vitamin D deficiency, unspecified; I10 Essential (primary) hypertension; I48.0 Paroxysmal atrial fibrillation
CPT/HCPCS: 36415; 80053; 80061; 82043; 82306; 83036; 84443; G0103

== ENCOUNTER → 2021-01-13 | Outpatient (CLI) | payer MEDICARE, OTHER ==
[~2021-01-13] MED LIST changes: +CIDA500T2 PO; +COMB0.2S; +HYDR-3363; +HYDR-3490 PO; -HYDR25TAB PO; +INVO300T; -LISI-538 PO; +LISI20TA33 PO; +OMEP-218; +VITA50005 PO; +[UNRECOGNIZED DRUG - CODE]
== END ==
LOC: M LABSMTC 09:48
PROVIDERS: ATTEND Anesthesiology
DX: Z01.812 Encounter for preprocedural laboratory examination (principal); Z20.822 Contact with and (suspected) exposure to COVID-19

== ENCOUNTER 2021-01-18 10:20 | Day surgery (SDC) | payer MEDICARE, BC, OTHER ==
[~2021-01-18] VITALS: Ht 180.3 cm; Wt 112.9 kg
[~2021-01-18 10:20] MED LIST changes: +NS 1,000 ML IV ONE
[2021-01-18] MEDS ORDERED: LIDOCAINE 2% 100MG/5ML SDV (FOR ANES.) As Ordered ONE (11:53)
[2021-01-18] MEDS ORDERED: propofoL 200 MG/20 ML VIAL As Ordered ONE (11:53)
--- NOTE | 2021-01-18 12:14 | ROOR ---
Patient Name: Kobe Shaw Procedure Date: 01/18/2021 11:39 AM Date of : 1950 Age: 70 Room: [facility] Gender: Male Note Status: Finalized Procedure: Total Colonoscopy to Cecum + Cold Snare Polypectomy Indications: Screening in patient at increased risk: Family history of 1st-degree relative with colorectal cancer, Last colonoscopy: 2014 Providers: Don Mendoza MD Referring MD: Elena Dill NP Requesting Provider: Medicines: Monitored Anesthesia Care Complications: No immediate complications. Procedure: Pre-Anesthesia Assessment: - The heart rate, respiratory rate, oxygen saturations, blood pressure, adequacy of pulmonary ventilation, and response to care were monitored throughout the procedure. The Colonoscope was introduced through the anus and advanced to the cecum, identified by appendiceal orifice and ileocecal valve. The colonoscopy was performed without difficulty. The patient tolerated the procedure well. The quality of the bowel preparation was excellent. Findings: The perianal and digital rectal examinations were normal. Non-bleeding internal hemorrhoids were found during retroflexion. The hemorrhoids were small and Grade I (internal hemorrhoids that do not prolapse). Scattered small-mouthed diverticula were found in the recto-sigmoid colon, sigmoid colon and descending colon. Multiple sessile polyps were found in the recto-sigmoid colon. The polyps were small in size. These polyps were removed with a cold snare. Resection and retrieval were complete. The exam was otherwise without abnormality on direct and retroflexion views. Impression: - Non-bleeding internal hemorrhoids. - Diverticulosis in the recto-sigmoid colon, in the sigmoid colon and in the descending colon. - Multiple small polyps at the recto-sigmoid colon, removed with a cold snare. Resected and retrieved. - The examination was otherwise normal on direct and retroflexion views. - The exam was otherwise normal to the cecum. Recommendation: - Patient has a contact number available for emergencies. The signs and symptoms of potential delayed complications were discussed with the patient. Return to normal activities tomorrow. Written discharge instructions were provided to the patient. - High fiber diet. - Discharge patient to home. - Resume Eliquis (apixaban) at prior dose today. - Await pathology results. - Repeat colonoscopy in 5 years for surveillance based on pathology results. - Return to referring physician. - Telephone GI clinic for pathology results in 1 week. - The findings and recommendations were discussed with the patient. Procedure Code(s): --- Professional --- 86602, Colonoscopy, flexible; with removal of tumor(s), polyp(s), or other lesion(s) by snare technique Diagnosis Code(s): --- Professional --- Z80.0, Family history of malignant neoplasm of digestive organs K64.0, First degree hemorrhoids K63.5, Polyp of colon K57.30, Diverticulosis of large intestine without perforation or abscess without bleeding CPT copyright 2019 [employer]. All rights reserved. The codes documented in this report are preliminary and upon coder operator review may be revised to meet current compliance requirements. Don Mendoza MD Don Mendoza MD 01/18/2021 12:14:02 PM Electronically signed by Don Mendoza MD Number of Addenda: 0 Note Initiated On: 01/18/2021 11:39 AM Estimated Blood Loss: Estimated blood loss: none.
[2021-01-18 12:26] VITALS: BP 122/75
== END 2021-01-18 12:28 | disposition home or self-care (01) ==
LOC: M OPP 10:20
PROVIDERS: ATTEND Internal Medicine Gastroenterology
DX: Z12.11 Encounter for screening for malignant neoplasm of colon (principal); Z80.0 Family history of malignant neoplasm of digestive organs; K63.5 Polyp of colon; K57.30 Diverticulosis of large intestine without perforation or abscess without bleeding; K64.0 First degree hemorrhoids; E11.9 Type 2 diabetes mellitus without complications; I10 Essential (primary) hypertension; E78.00 Pure hypercholesterolemia, unspecified; I48.91 Unspecified atrial fibrillation; Z95.0 Presence of cardiac pacemaker; Z79.899 Other long term (current) drug therapy; Z79.84 Long term (current) use of oral hypoglycemic drugs

== ENCOUNTER → 2021-04-05 | Outpatient (REF) | payer MEDICARE, OTHER ==
[~2021-04-05] MED LIST changes: -NS 1,000 ML IV ONE
[2021-04-05 11:06] LABS: BASO # 0.1 10^3/uL (0.0-0.2); BASO % 0.8 % (0.0-1.0); EOS # 0.4 10^3/uL (0.0-0.5); EOS % 3.4 % (0.0-3.0); HEMATOCRIT 52.8 % (42.0-52.0); HEMOGLOBIN 17.2 g/dl (13.5-17.5); LYMPH # 2.4 10^3/uL (1.5-5.0); LYMPH % 18.8 % (24.0-44.0); MEAN CORPUSCULAR HEMOGLOBIN 30.8 pg (27.0-33.0); MEAN CORPUSCULAR HGB CONC 32.6 g/dl (32.0-36.5); MEAN CORPUSCULAR VOLUME 94.5 fl (80.0-96.0); MONO # 0.9 10^3/uL (0.0-0.8); MONO % 7.1 % (2.0-8.0); NEUTROPHILS # 8.8 10^3/uL (1.5-8.5); NEUTROPHILS % 69.2 % (36.0-66.0); PLATELET COUNT, AUTOMATED 223 10^3/uL (150-450); RED BLOOD COUNT 5.59 10^6/uL (4.30-6.10); WHITE BLOOD COUNT 12.7 10^3/uL (4.0-10.0)
[2021-04-05 11:34] LABS: HEMOGLOBIN A1c 7.7 %
[2021-04-05 11:44] LABS: MAU/CREAT RATIO 49.4 MCG/MG (0.0-30.0)
[2021-04-05 12:04] LABS: ALBUMIN 3.7 GM/DL (3.2-5.2); ALT/SGPT 51 U/L (12-78); BILIRUBIN,TOTAL 0.9 MG/DL (0.2-1.0); BLOOD UREA NITROGEN 13 MG/DL (7-18); CALCIUM LEVEL 9.1 MG/DL (8.8-10.2); CARBON DIOXIDE LEVEL 31 MEQ/L (21-32); CHLORIDE LEVEL 104 MEQ/L (98-107); CHOLESTEROL LEVEL 99 MG/DL (<200); CHOLESTEROL RISK RATIO 3.093 (<5); CREATININE FOR GFR 0.96 MG/DL (0.70-1.30); FREE T4 0.95 NG/DL (0.76-1.46); GLOMERULAR FILTRATION RATE > 60.0 (>49); GLUCOSE, FASTING 161 MG/DL (70-100); HDL CHOLESTEROL 32 MG/DL (>40); LDL CHOLESTEROL 26 MG/DL (<100); NON-HDL-C 67 MG/DL; POTASSIUM SERUM 4.2 MEQ/L (3.5-5.1); SODIUM LEVEL 139 MEQ/L (136-145); TOTAL PROTEIN 6.4 GM/DL (6.4-8.2); TRIGLYCERIDES LEVEL 205 MG/DL (<150)
== END ==
LOC: M SFHCPLAZ 08:01
PROVIDERS: ATTEND Nurse Practitioner Adult Health
DX: I10 Essential (primary) hypertension (principal); E11.9 Type 2 diabetes mellitus without complications; E78.2 Mixed hyperlipidemia; Z12.5 Encounter for screening for malignant neoplasm of prostate; I48.0 Paroxysmal atrial fibrillation
CPT/HCPCS: 36415; 80053; 80061; 82043; 83036; 84439; 84443; 85025; G0103

== ENCOUNTER → 2021-04-25 | Outpatient (CLI) | payer MEDICARE, BC, OTHER ==
[~2021-04-25] MED LIST changes: +ERGO500029 PO; +OMEP40CA4 PO; -OMEP40CA97 PO; -VITA50005 PO
--- NOTE | 2021-04-25 10:48 | REP ---
INDICATION: LUNG NODULE COMPARISON: 04/15/2020 TECHNIQUE: Axial noncontrast images from the thoracic inlet to the upper abdomen with coronal and sagittal reformations. This CT examination was performed using the following dose reduction techniques: Automated exposure control, adjustment of mA and/or kv according to the patient's size, and use of iterative reconstruction technique. FINDINGS: Bilateral lung santamaria are relatively well aerated. Minimal posterior basilar dependent changes are suggested along with mild chronic age-related interstitial changes. 4 mm nodule in the right middle lobe (series 3, image 66) remains stable. No new suspicious nodule or mass. No consolidation, effusion, or pneumothorax. Tracheobronchial tree is patent. Nonspecific hilar lymph nodes measure up to roughly 16 mm in the left hilum. Atherosclerotic changes to the thoracic aorta and coronary arteries along with pacemaker leads are again noted. No cardiomegaly or pericardial effusion. No thoracic aortic aneurysm noted. Limited upper abdomen demonstrates essentially normal bilateral adrenal glands and 4.9 cm incompletely evaluated left renal hypodensity suggesting cyst and consistent with findings on 2019 ultrasound. IMPRESSION: 1. Chronic stable changes to the lung santamaria. 2. No acute mediastinal or pleuroparenchymal process. <Electronically signed by Petar Ram > 04/25/21 [id number]
== END ==
LOC: M PLAIMG 09:38
PROVIDERS: ATTEND Nurse Practitioner Adult Health
DX: R91.1 Solitary pulmonary nodule (principal)

== ENCOUNTER → 2021-04-28 | Outpatient (REF) | payer MEDICARE, BC, OTHER ==
[2021-04-28 19:08] LABS: APPEARANCE, URINE CLEAR (CLEAR); BACTERIA, URINE AUTO 1+ (NEGATIVE); BILIRUBIN, URINE AUTO NEGATIVE (NEGATIVE); BLOOD, URINE BLOOD NEGATIVE (NEGATIVE); COLOR, URINE YELLOW (YELLOW); GLUCOSE, URINE (UA) AUTO 3+ mg/dL (NEGATIVE); KETONE, URINE AUTO NEGATIVE (NEGATIVE); LEUKOCYTE ESTERASE, URINE AUTO TRACE (NEGATIVE); NITRITE, URINE AUTO NEGATIVE (NEGATIVE); PROTEIN, URINE AUTO NEGATIVE (NEGATIVE); RBC, URINE AUTO 2 /HPF (0-3); SPECIFIC GRAVITY URINE AUTO 1.026 (1.002-1.035); SQUAMOUS EPITHELIAL CELL UR AU 0 /HPF (0-6); UROBILINOGEN, URINE AUTO 0.2 mg/dL (0.0-2.0); WBC, URINE AUTO 5 /HPF (0-3)
== END ==
LOC: M SMT 17:14
PROVIDERS: ATTEND Urology
DX: N40.1 Benign prostatic hyperplasia with lower urinary tract symptoms (principal)

== ENCOUNTER → 2021-07-24 | Outpatient (CLI) | payer MEDICARE, BC, OTHER ==
[2021-07-24 11:45] LABS: HEMOGLOBIN A1c 8.4 %
== END ==
LOC: M PLALAB 07:38
PROVIDERS: ATTEND Nurse Practitioner Adult Health
DX: E11.9 Type 2 diabetes mellitus without complications (principal)

== ENCOUNTER → 2021-09-21 | Outpatient (REF) | payer MEDICARE, BC, OTHER ==
[~2021-09-21] MED LIST changes: -IBUP200T45 PO; +IBUP200T46 PO; +OMEP-173; -OMEP-218
== END ==
LOC: M LAB REF 15:17
PROVIDERS: ATTEND Physician Assistant
DX: L57.0 Actinic keratosis (principal)

== ENCOUNTER → 2021-10-30 | Outpatient (CLI) | payer MEDICARE, BC, OTHER ==
[~2021-10-30] MED LIST changes: -OMEP-173; +OMEP-218
[2021-10-30 10:43] LABS: HEMOGLOBIN A1c 7.7 %
[2021-10-30 10:48] LABS: ALBUMIN 3.7 GM/DL (3.2-5.2); ALT/SGPT 43 U/L (12-78); BILIRUBIN,TOTAL 0.7 MG/DL (0.2-1.0); BLOOD UREA NITROGEN 14 MG/DL (7-18); CALCIUM LEVEL 9.2 MG/DL (8.8-10.2); CARBON DIOXIDE LEVEL 34 MEQ/L (21-32); CHLORIDE LEVEL 101 MEQ/L (98-107); CREATININE FOR GFR 1.04 MG/DL (0.70-1.30); GLOMERULAR FILTRATION RATE > 60.0 (>49); GLUCOSE, FASTING 184 MG/DL (70-100); POTASSIUM SERUM 4.5 MEQ/L (3.5-5.1); SODIUM LEVEL 139 MEQ/L (136-145); TOTAL PROTEIN 6.4 GM/DL (6.4-8.2)
== END ==
LOC: M PLALAB 07:18
PROVIDERS: ATTEND Nurse Practitioner Adult Health
DX: E11.9 Type 2 diabetes mellitus without complications (principal)

== ENCOUNTER → 2021-10-30 | Outpatient (CLI) | payer MEDICARE, BC, OTHER ==
[2021-11-01 00:11] LABS: PSA TOTAL 3.8 ng/mL (0.0-4.0)
== END ==
LOC: M PLALAB 07:21
PROVIDERS: ATTEND Urology
DX: R97.20 Elevated prostate specific antigen [PSA] (principal)

== ENCOUNTER → 2022-03-21 | Outpatient (REF) | payer MEDICARE, OTHER, BC ==
[~2022-03-21] MED LIST changes: -FENO134C PO; +FENO134C16 PO; +OMEP-173; -OMEP-218
== END ==
LOC: M SFHCDERM 14:40
PROVIDERS: ATTEND Physician Assistant
DX: B07.9 Viral wart, unspecified (principal)

== ENCOUNTER → 2022-04-02 | Outpatient (CLI) | payer MEDICARE, OTHER, BC ==
[2022-04-02 14:19] LABS: MAU/CREAT RATIO 860.3 MCG/MG (0.0-30.0)
== END ==
LOC: M PLALAB 07:14
PROVIDERS: ATTEND Nurse Practitioner Adult Health
DX: E55.9 Vitamin D deficiency, unspecified (principal); E11.9 Type 2 diabetes mellitus without complications; Z79.899 Other long term (current) drug therapy

== ENCOUNTER → 2022-04-09 | Outpatient (CLI) | payer MEDICARE, OTHER, BC ==
[2022-04-09 17:27] LABS: ALBUMIN 3.5 GM/DL (3.2-5.2); ALT/SGPT 39 U/L (12-78); BILIRUBIN,TOTAL 0.7 MG/DL (0.2-1.0); BLOOD UREA NITROGEN 13 MG/DL (7-18); CALCIUM LEVEL 9.4 MG/DL (8.8-10.2); CARBON DIOXIDE LEVEL 31 MEQ/L (21-32); CHLORIDE LEVEL 102 MEQ/L (98-107); CREATININE FOR GFR 0.84 MG/DL (0.70-1.30); GLOMERULAR FILTRATION RATE > 60.0 (>49); GLUCOSE, FASTING 148 MG/DL (70-100); POTASSIUM SERUM 3.9 MEQ/L (3.5-5.1); SODIUM LEVEL 140 MEQ/L (136-145); TOTAL PROTEIN 6.1 GM/DL (6.4-8.2)
[2022-04-09 19:37] LABS: HEMOGLOBIN A1c 8.4 %
== END ==
LOC: M PLAIMG 15:35
PROVIDERS: ATTEND Nurse Practitioner Adult Health
DX: M17.0 Bilateral primary osteoarthritis of knee (principal); M25.562 Pain in left knee; M25.561 Pain in right knee; E11.9 Type 2 diabetes mellitus without complications

== ENCOUNTER → 2022-04-12 | Outpatient (REF) | payer MEDICARE, OTHER, BC ==
[2022-04-12 18:12] LABS: APPEARANCE, URINE MANUAL CLOUDY (CLEAR); COLOR, URINE MANUAL RED (YELLOW)
[2022-04-12 18:21] LABS: PH,URINE MAN OBSCURED UNITS (5.0 - 7.0)
[2022-04-12 18:22] LABS: BILIRUBIN, URINE MANUAL OBSCURED (NEGATIVE); BLOOD URINE MANUAL POSITIVE (NEGATIVE); GLUCOSE, URINE (UA) MANUAL OBSCURED mg/dL (NEGATIVE); KETONE, URINE MANUAL OBSCURED mg/dL (NEGATIVE); LEUKOCYTE ESTERASE, URINE MAN OBSCURED (NEGATIVE); NITRITE, URINE MANUAL OBSCURED (NEGATIVE); PROTEIN, URINE MANUAL OBSCURED mg/dL (NEGATIVE); SPECIFIC GRAVITY,URINE MANUAL 1.005 (1.002-1.035); UROBILINOGEN, URINE MANUAL OBSCURED mg/dl (NORMAL)
[2022-04-12 18:23] LABS: BACTERIA, URINE LARGE AMOUNT; HYALINE CAST, URINE NONE SEEN /lpf (0-1); RBC, URINE TNTC /hpf (0-3); SQUAMOUS EPITHELIAL CELL URINE NONE SEEN /hpf (SMALL AMT); WBC, URINE 20-30 /hpf (0-3)
== END ==
LOC: M SMT 16:55
PROVIDERS: ATTEND Urology
DX: N39.0 Urinary tract infection, site not specified (principal)

== ENCOUNTER → 2022-04-13 | Outpatient (CLI) | payer MEDICARE, OTHER, BC ==
[2022-04-13 10:45] LABS: APPEARANCE, URINE HAZY (CLEAR); BACTERIA, URINE AUTO 1+ (NEGATIVE); BILIRUBIN, URINE AUTO NEGATIVE (NEGATIVE); BLOOD, URINE BLOOD 3+ (NEGATIVE); COLOR, URINE YELLOW (YELLOW); GLUCOSE, URINE (UA) AUTO NEGATIVE (NEGATIVE); KETONE, URINE AUTO NEGATIVE (NEGATIVE); LEUKOCYTE ESTERASE, URINE AUTO 2+ (NEGATIVE); MUCUS, URINE SMALL (NEGATIVE); NITRITE, URINE AUTO NEGATIVE (NEGATIVE); PROTEIN, URINE AUTO 3+ mg/dL (NEGATIVE); RBC, URINE AUTO 107 /HPF (0-3); SPECIFIC GRAVITY URINE AUTO 1.016 (1.002-1.035); SQUAMOUS EPITHELIAL CELL UR AU 1 /HPF (0-6); UROBILINOGEN, URINE AUTO 0.2 mg/dL (0.0-2.0); WBC, URINE AUTO 121 /HPF (0-3)
[2022-04-13 11:10] LABS: BLOOD UREA NITROGEN 12 MG/DL (7-18); CARBON DIOXIDE LEVEL 31 MEQ/L (21-32); CHLORIDE LEVEL 100 MEQ/L (98-107); CREATININE FOR GFR 0.93 MG/DL (0.70-1.30); GLOMERULAR FILTRATION RATE > 60.0 (>49); GLUCOSE, FASTING 164 MG/DL (70-100); SODIUM LEVEL 138 MEQ/L (136-145)
== END ==
LOC: M PLALAB 07:17
PROVIDERS: ATTEND Urology
DX: N39.0 Urinary tract infection, site not specified (principal)

== ENCOUNTER → 2022-04-16 | Outpatient (CLI) | payer MEDICARE, BC, OTHER ==
[~2022-04-16] MED LIST changes: +ISOVUE-370 76% 100ML VIAL As Ordered ONE
== END ==
LOC: M RAD 14:36
PROVIDERS: ATTEND Urology
DX: R31.0 Gross hematuria (principal)
CPT/HCPCS: 74178; Q9967

== ENCOUNTER → 2022-05-01 | Outpatient (REF) | payer MEDICARE, OTHER ==
[~2022-05-01] MED LIST changes: -ISOVUE-370 76% 100ML VIAL As Ordered ONE
== END ==
LOC: M SMT 16:51
PROVIDERS: ATTEND Urology
DX: N39.0 Urinary tract infection, site not specified (principal)

== ENCOUNTER → 2022-07-19 | Outpatient (REF) | payer MEDICARE, OTHER | LOC: M SFHCPLAZ 16:52 | PROVIDERS: ATTEND Nurse Practitioner Adult Health | DX: E78.2 Mixed hyperlipidemia (principal); E11.9 Type 2 diabetes mellitus without complications; I48.0 Paroxysmal atrial fibrillation; E55.9 Vitamin D deficiency, unspecified; Z00.00 Encounter for general adult medical examination without abnormal findings ==

== ENCOUNTER → 2022-07-23 | Outpatient (CLI) | payer MEDICARE, BC, OTHER ==
[2022-07-23 11:44] LABS: ALBUMIN 3.7 GM/DL (3.2-5.2); ALT/SGPT 45 U/L (12-78); BILIRUBIN,TOTAL 0.9 MG/DL (0.2-1.0); BLOOD UREA NITROGEN 14 MG/DL (7-18); CALCIUM LEVEL 9.1 MG/DL (8.8-10.2); CARBON DIOXIDE LEVEL 32 MEQ/L (21-32); CHLORIDE LEVEL 101 MEQ/L (98-107); CHOLESTEROL LEVEL 132 MG/DL (<200); CHOLESTEROL RISK RATIO 3.384 (<5); CREATININE FOR GFR 0.92 MG/DL (0.70-1.30); GLOMERULAR FILTRATION RATE > 60.0 (>42); GLUCOSE, FASTING 166 MG/DL (70-100); HDL CHOLESTEROL 39 MG/DL (>40); LDL CHOLESTEROL 39 MG/DL (<100); NON-HDL-C 93 MG/DL; POTASSIUM SERUM 4.6 MEQ/L (3.5-5.1); SODIUM LEVEL 137 MEQ/L (136-145); TOTAL PROTEIN 6.7 GM/DL (6.4-8.2); TRIGLYCERIDES LEVEL 270 MG/DL (<150)
[2022-07-23 11:48] LABS: HEMOGLOBIN A1c 7.9 %
[2022-07-23 12:23] LABS: MAU/CREAT RATIO 1258.9 MCG/MG (0.0-30.0)
[2022-07-23 12:33] LABS: TOTAL 25(OH) VITAMIN D 59.1 NG/ML (30.0-100.0)
== END ==
LOC: M PLALAB 07:08
PROVIDERS: ATTEND Nurse Practitioner Adult Health
DX: E11.9 Type 2 diabetes mellitus without complications (principal)

== ENCOUNTER → 2022-10-20 | Outpatient (REF) | payer MEDICARE, BC, OTHER ==
[~2022-10-20] MED LIST changes: -FENO134C16 PO; +FENO134C20 PO
== END ==
LOC: M WUC 19:14
PROVIDERS: ATTEND Student in an Organized Health Care Education/Training Program
DX: R30.0 Dysuria (principal)

== ENCOUNTER → 2022-11-06 | Outpatient (CLI) | payer MEDICARE, BC, OTHER ==
[2022-11-06 10:22] LABS: HEMATOCRIT 49.7 % (42.0-52.0); HEMOGLOBIN 16.2 g/dl (13.5-17.5); MEAN CORPUSCULAR HEMOGLOBIN 30.5 pg (27.0-33.0); MEAN CORPUSCULAR HGB CONC 32.6 g/dl (32.0-36.5); MEAN CORPUSCULAR VOLUME 93.4 fl (80.0-96.0); PLATELET COUNT, AUTOMATED 330 10^3/uL (150-450); RED BLOOD COUNT 5.32 10^6/uL (4.30-6.10); WHITE BLOOD COUNT 15.6 10^3/uL (4.0-10.0)
[2022-11-06 10:46] LABS: ALBUMIN 3.7 G/DL (3.2-5.2); ALKALINE PHOSPHATASE 61 U/L (46-116); ALT/SGPT 38 U/L (7.0-40); AST/SGOT 21 U/L (<34); BILIRUBIN,TOTAL 0.9 MG/DL (0.3-1.2); BLOOD UREA NITROGEN 13 MG/DL (9-23); CALCIUM LEVEL 9.8 MG/DL (8.3-10.6); CARBON DIOXIDE LEVEL 33 MMOL/L (20-31); CHLORIDE LEVEL 102 MMOL/L (98-107); CHOLESTEROL LEVEL 120 MG/DL (<200); CHOLESTEROL RISK RATIO 3.14 (<5); CREATININE FOR GFR 0.86 MG/DL (0.70-1.30); GLOMERULAR FILTRATION RATE > 60.0 (>42); GLUCOSE, FASTING 138 MG/DL (74-106); HDL CHOLESTEROL 38.2 MG/DL (>40); LDL CHOLESTEROL 42.6 MG/DL (<100); NON-HDL-C 82 MG/DL; POTASSIUM SERUM 4.4 MMOL/L (3.5-5.1); SODIUM LEVEL 141 MMOL/L (136-145); TOTAL PROTEIN 6.3 G/DL (5.7-8.2); TRIGLYCERIDES LEVEL 196 MG/DL (<150)
== END ==
LOC: M PLALAB 07:21
PROVIDERS: ATTEND Nurse Practitioner Adult Health
DX: E11.9 Type 2 diabetes mellitus without complications (principal); Z12.5 Encounter for screening for malignant neoplasm of prostate
CPT/HCPCS: 36415; 80053; 80061; 83036; 85027; G0103

== ENCOUNTER → 2022-12-07 | Outpatient (CLI) | payer MEDICARE, BC, OTHER ==
[~2022-12-07] MED LIST changes: +ISOVUE-370 76% 100ML VIAL As Ordered ONE
== END ==
LOC: M RAD 08:25
PROVIDERS: ATTEND Nurse Practitioner Adult Health
DX: R91.1 Solitary pulmonary nodule (principal)
CPT/HCPCS: 71260; Q9967

== ENCOUNTER → 2023-05-21 | Outpatient (CLI) | payer MEDICARE, BC, OTHER ==
[~2023-05-21] MED LIST changes: -ISOVUE-370 76% 100ML VIAL As Ordered ONE
[2023-05-21 10:47] LABS: HEMATOCRIT 49.8 % (42.0-52.0); HEMOGLOBIN 16.2 g/dl (13.5-17.5); MEAN CORPUSCULAR HGB CONC 32.5 g/dl (32.0-36.5); MEAN CORPUSCULAR VOLUME 95.2 fl (80.0-96.0); PLATELET COUNT, AUTOMATED 297 10^3/uL (150-450); RED BLOOD COUNT 5.23 10^6/uL (4.30-6.10); WHITE BLOOD COUNT 14.9 10^3/uL (4.0-10.0)
[2023-05-21 11:05] LABS: HEMOGLOBIN A1c 6.6 % (4.0-6.0)
[2023-05-21 11:19] LABS: ALBUMIN 3.7 G/DL (3.2-5.2); ALKALINE PHOSPHATASE 61 U/L (46-116); ALT/SGPT 29 U/L (7.0-40); AST/SGOT 13 U/L (<34); BILIRUBIN,TOTAL 0.7 MG/DL (0.3-1.2); BLOOD UREA NITROGEN 18 MG/DL (9-23); CALCIUM LEVEL 9.6 MG/DL (8.3-10.6); CARBON DIOXIDE LEVEL 29 MMOL/L (20-31); CHLORIDE LEVEL 102 MMOL/L (98-107); CHOLESTEROL LEVEL 113 MG/DL (<200); CHOLESTEROL RISK RATIO 3.32 (<5); CREATININE FOR GFR 0.86 MG/DL (0.70-1.30); GLOMERULAR FILTRATION RATE > 60.0 (>42); GLUCOSE, FASTING 129 MG/DL (74-106); LDL CHOLESTEROL 38.2 MG/DL (<100); SODIUM LEVEL 141 MMOL/L (136-145); TOTAL PROTEIN 6.3 G/DL (5.7-8.2); TRIGLYCERIDES LEVEL 204 MG/DL (<150)
[2023-05-21 11:24] LABS: THYROID STIMULATING HORMONE 1.474 uIU/ML (0.55-4.78)
[2023-05-21 11:25] LABS: TOTAL 25(OH) VITAMIN D 92.6 NG/ML (20.0-100.0)
== END ==
LOC: M PLALAB 08:15
PROVIDERS: ATTEND Nurse Practitioner Adult Health
DX: E11.9 Type 2 diabetes mellitus without complications (principal); E78.2 Mixed hyperlipidemia; I48.0 Paroxysmal atrial fibrillation; E55.9 Vitamin D deficiency, unspecified; I10 Essential (primary) hypertension

== ENCOUNTER → 2023-06-14 | Outpatient (REF) | payer MEDICARE, BC, OTHER | LOC: M LAB REF 16:57 | PROVIDERS: ATTEND Internal Medicine Nephrology | DX: N39.0 Urinary tract infection, site not specified (principal) ==

== ENCOUNTER → 2023-06-20 | Outpatient (CLI) | payer MEDICARE, BC, OTHER | LOC: M PLAIMG 13:32 | PROVIDERS: ATTEND Urology | DX: K57.90 Diverticulosis of intestine, part unspecified, without perforation or abscess without bleeding (principal); N40.0 Benign prostatic hyperplasia without lower urinary tract symptoms; N28.1 Cyst of kidney, acquired ==

== ENCOUNTER → 2023-06-25 | Outpatient (REF) | payer MEDICARE, BC, OTHER ==
[2023-06-25 14:23] LABS: APPEARANCE, URINE CLEAR (CLEAR); BACTERIA, URINE AUTO NEGATIVE (NEGATIVE); BILIRUBIN, URINE AUTO NEGATIVE (NEGATIVE); BLOOD, URINE BLOOD NEGATIVE (NEGATIVE); COLOR, URINE YELLOW (YELLOW); GLUCOSE, URINE (UA) AUTO NEGATIVE (NEGATIVE); KETONE, URINE AUTO NEGATIVE (NEGATIVE); LEUKOCYTE ESTERASE, URINE AUTO NEGATIVE (NEGATIVE); NITRITE, URINE AUTO NEGATIVE (NEGATIVE); PROTEIN, URINE AUTO 1+ mg/dL (NEGATIVE); RBC, URINE AUTO 1 /HPF (0-3); SPECIFIC GRAVITY URINE AUTO 1.014 (1.002-1.035); SQUAMOUS EPITHELIAL CELL UR AU 1 /HPF (0-6); UROBILINOGEN, URINE AUTO 0.2 mg/dL (0.0-2.0); WBC, URINE AUTO 1 /HPF (0-3)
== END ==
LOC: M SMT 13:15
PROVIDERS: ATTEND Urology
DX: N39.0 Urinary tract infection, site not specified (principal)

== ENCOUNTER → 2023-12-30 | Outpatient (CLI) | payer MEDICARE, BC | LOC: M PLAIMG 09:10 | PROVIDERS: ATTEND Nurse Practitioner Adult Health | DX: R91.1 Solitary pulmonary nodule (principal) ==

== ENCOUNTER → 2024-04-30 | Outpatient (CLI) | payer MEDICARE, BC ==
[~2024-04-30] MED LIST changes: +ALLO100T PO; +ATOR40TA75 PO; +BISO10TA14 PO; +BREO1INH3 INH; -COMB0.2S; +COMB0.2S OU; +DICL100G10 TOP; +DULA3PEN SC; +FINA5TAB2 PO; +LISI20TA35 PO; -OMEP-173; +OMEP-173 PO; +PROA1AER2 INH; +TAMS1CAP17 PO; +TRAV2.5D OU; +TRUL0.5I SC
[2024-04-30 14:44] LABS: HEMATOCRIT 48.5 % (42.0-52.0); HEMOGLOBIN 16.1 g/dl (13.5-17.5); MEAN CORPUSCULAR HEMOGLOBIN 31.1 pg (27.0-33.0); MEAN CORPUSCULAR HGB CONC 33.2 g/dl (32.0-36.5); MEAN CORPUSCULAR VOLUME 93.8 fl (80.0-96.0); PLATELET COUNT, AUTOMATED 283 10^3/uL (150-450); RED BLOOD COUNT 5.17 10^6/uL (4.30-6.10)
[2024-04-30 15:15] LABS: ALBUMIN 3.9 G/DL (3.2-5.2); ALKALINE PHOSPHATASE 61 U/L (46-116); ALT/SGPT 40 U/L (7.0-40); AST/SGOT 16 U/L (<34); BILIRUBIN,TOTAL 0.7 MG/DL (0.3-1.2); BLOOD UREA NITROGEN 15 MG/DL (9-23); CALCIUM LEVEL 9.2 MG/DL (8.3-10.6); CARBON DIOXIDE LEVEL 30 MMOL/L (20-31); CHLORIDE LEVEL 104 MMOL/L (98-107); CREATININE FOR GFR 0.87 MG/DL (0.70-1.30); GLOMERULAR FILTRATION RATE > 60.0 (>42); GLUCOSE, FASTING 104 MG/DL (74-106); MAGNESIUM LEVEL 1.4 MG/DL (1.8-2.4); POTASSIUM SERUM 4.1 MMOL/L (3.5-5.1); SODIUM LEVEL 139 MMOL/L (136-145); TOTAL PROTEIN 6.1 G/DL (5.7-8.2)
[2024-04-30 16:33] LABS: HEMOGLOBIN A1c 6.4 % (4.0-6.0)
== END ==
LOC: M PLALAB 11:22
PROVIDERS: ATTEND Family Medicine
DX: I10 Essential (primary) hypertension (principal); E11.9 Type 2 diabetes mellitus without complications

== ENCOUNTER → 2024-04-30 | Outpatient (REF) | payer MEDICARE, BC | LOC: M SFHCPLAZ 11:08 | PROVIDERS: ATTEND Family Medicine | DX: I10 Essential (primary) hypertension (principal); E11.9 Type 2 diabetes mellitus without complications ==

== ENCOUNTER 2024-05-04 11:16 | Day surgery (SDC) | payer MEDICARE, BC ==
[~2024-05-04] VITALS: Ht 180.3 cm; Wt 108.0 kg
[2024-05-04] MEDS ORDERED: MIDAZOLAM INJ 2MG/2ML VIAL As Ordered ONE (12:23)
[2024-05-04] MEDS ORDERED: propofoL 200 MG/20 ML VIAL As Ordered ONE (12:24)
[2024-05-04] MEDS ORDERED: fentaNYL 100 MCG/2 ML INJECTION As Ordered ONE (12:26)
[2024-05-04] MEDS ORDERED: ROCURONIUM BROMIDE 50MG/5ML VIAL As Ordered ONE (12:27)
[2024-05-04] MEDS ORDERED: ONDANSETRON 4MG 2ML VIAL As Ordered ONE (12:28)
[2024-05-04] MEDS: LIDOCAINE W/EPINEPHRINE 1% 20ML VIAL As Ordered ONE (13:00)
[2024-05-04] MEDS ORDERED: LIDOCAINE 2% 100MG/5ML SDV (FOR ANES.) As Ordered ONE (13:39)
[2024-05-04] MEDS ORDERED: ACETAMINOPHEN 1000MG 100ML IV BAG As Ordered ONE (14:41)
[2024-05-04] MEDS ORDERED: SUGAMMADEX SODIUM 500 MG/5 ML VIAL (BRIDION) As Ordered ONE (14:48)
[2024-05-04] MEDS ORDERED: fentaNYL 100 MCG/2 ML INJECTION IV PRN (14:55)
[2024-05-04] MEDS ORDERED: ONDANSETRON 4MG 2ML VIAL IV PRN (14:55)
[2024-05-04] MEDS: PERCOCET 5MG/325MG TAB PO PRN (15:49)
[2024-05-04 16:24] VITALS: BP 129/68; TEMP 97.7; O2SAT 96
== END 2024-05-04 16:27 | disposition home or self-care (01) ==
LOC: M SDC 11:16
PROVIDERS: ATTEND Otolaryngology
DX: D10.39 Benign neoplasm of other parts of mouth (principal); I48.91 Unspecified atrial fibrillation; R07.9 Chest pain, unspecified; Z95.0 Presence of cardiac pacemaker; E11.9 Type 2 diabetes mellitus without complications; G47.30 Sleep apnea, unspecified; N40.0 Benign prostatic hyperplasia without lower urinary tract symptoms; Z87.440 Personal history of urinary (tract) infections; J45.909 Unspecified asthma, uncomplicated; M19.90 Unspecified osteoarthritis, unspecified site; M45.9 Ankylosing spondylitis of unspecified sites in spine; Z91.018 Allergy to other foods; Z79.899 Other long term (current) drug therapy; Z79.51 Long term (current) use of inhaled steroids; Z79.01 Long term (current) use of anticoagulants; Z79.84 Long term (current) use of oral hypoglycemic drugs; Z79.85 Long-term (current) use of injectable non-insulin antidiabetic drugs; F17.210 Nicotine dependence, cigarettes, uncomplicated
CPT/HCPCS: 42106; 88305; J0131; J1100; J2250; J2405; J3010

== ENCOUNTER → 2024-05-21 | Outpatient (CLI) | payer MEDICARE, BC ==
[2024-05-21 10:49] LABS: HEMATOCRIT 48.4 % (42.0-52.0); HEMOGLOBIN 16.3 g/dl (13.5-17.5); MEAN CORPUSCULAR HEMOGLOBIN 31.4 pg (27.0-33.0); MEAN CORPUSCULAR HGB CONC 33.7 g/dl (32.0-36.5); MEAN CORPUSCULAR VOLUME 93.3 fl (80.0-96.0); PLATELET COUNT, AUTOMATED 286 10^3/uL (150-450); RED BLOOD COUNT 5.19 10^6/uL (4.30-6.10); WHITE BLOOD COUNT 16.4 10^3/uL (4.0-10.0)
[2024-05-21 10:55] LABS: ALBUMIN 3.9 G/DL (3.2-5.2); ALKALINE PHOSPHATASE 67 U/L (46-116); ALT/SGPT 47 U/L (7.0-40); AST/SGOT 23 U/L (<34); BILIRUBIN,TOTAL 1.1 MG/DL (0.3-1.2); BLOOD UREA NITROGEN 17 MG/DL (9-23); CALCIUM LEVEL 9.7 MG/DL (8.3-10.6); CARBON DIOXIDE LEVEL 30 MMOL/L (20-31); CHLORIDE LEVEL 105 MMOL/L (98-107); CHOLESTEROL LEVEL 114 MG/DL (<200); CHOLESTEROL RISK RATIO 3.22 (<5); CREATININE FOR GFR 0.91 MG/DL (0.70-1.30); GLOMERULAR FILTRATION RATE > 60.0 (>42); GLUCOSE, FASTING 132 MG/DL (74-106); HDL CHOLESTEROL 35.4 MG/DL (>40); LDL CHOLESTEROL 43.2 MG/DL (<100); NON-HDL-C 78.6 MG/DL; SODIUM LEVEL 140 MMOL/L (136-145); TOTAL PROTEIN 6.3 G/DL (5.7-8.2); TRIGLYCERIDES LEVEL 177 MG/DL (<150)
[2024-05-21 10:57] LABS: THYROID STIMULATING HORMONE 1.216 uIU/ML (0.55-4.78); TOTAL 25(OH) VITAMIN D 67.6 NG/ML (20.0-100.0)
[2024-05-21 10:59] LABS: URIC ACID 8.8 MG/DL (3.7-9.2)
[2024-05-21 11:11] LABS: HEMOGLOBIN A1c 6.6 % (4.0-6.0)
== END ==
LOC: M PLALAB 07:24
PROVIDERS: ATTEND Nurse Practitioner Adult Health
DX: I10 Essential (primary) hypertension (principal); E11.9 Type 2 diabetes mellitus without complications; E78.2 Mixed hyperlipidemia; I48.0 Paroxysmal atrial fibrillation; M1A.9XX0 Chronic gout, unspecified, without tophus (tophi); E55.9 Vitamin D deficiency, unspecified

== ENCOUNTER → 2024-07-23 | Outpatient (CLI) | payer MEDICARE, BC | LOC: M PLAIMG 12:40 | PROVIDERS: ATTEND Nurse Practitioner Adult Health | DX: R91.1 Solitary pulmonary nodule (principal) ==

== ENCOUNTER → 2024-08-18 | Outpatient (CLI) | payer MEDICARE, BC | LOC: M PLARAD 12:32 | PROVIDERS: ATTEND Nurse Practitioner Adult Health | DX: R93.89 Abnormal findings on diagnostic imaging of other specified body structures (principal); R91.8 Other nonspecific abnormal finding of lung field | CPT/HCPCS: 78815; A9552 ==

== ENCOUNTER → 2024-12-14 | Outpatient (CLI) | payer MEDICARE, BC ==
[2024-12-14 11:29] LABS: HEMATOCRIT 47.9 % (42.0-52.0); MEAN CORPUSCULAR HEMOGLOBIN 32.2 pg (27.0-33.0); MEAN CORPUSCULAR HGB CONC 33.4 g/dl (32.0-36.5); MEAN CORPUSCULAR VOLUME 96.4 fl (80.0-96.0); PLATELET COUNT, AUTOMATED 290 10^3/uL (150-450); RED BLOOD COUNT 4.97 10^6/uL (4.30-6.10); WHITE BLOOD COUNT 14.4 10^3/uL (4.0-10.0)
[2024-12-14 11:46] LABS: HEMOGLOBIN A1c 5.8 % (4.0-6.0)
[2024-12-14 12:01] LABS: FREE T4 1.22 NG/DL (0.89-1.76)
[2024-12-14 12:02] LABS: THYROID STIMULATING HORMONE 1.924 uIU/ML (0.55-4.78)
[2024-12-14 12:08] LABS: ALBUMIN 3.8 G/DL (3.2-5.2); ALKALINE PHOSPHATASE 54 U/L (40-129); ALT/SGPT 27 U/L (7.0-40); AST/SGOT 14 U/L (<34); BILIRUBIN,TOTAL 0.8 MG/DL (0.3-1.2); BLOOD UREA NITROGEN 13 MG/DL (9-23); CALCIUM LEVEL 9.2 MG/DL (8.3-10.6); CARBON DIOXIDE LEVEL 30 MMOL/L (20-31); CHLORIDE LEVEL 103 MMOL/L (98-107); CHOLESTEROL LEVEL 118 MG/DL (<200); CHOLESTEROL RISK RATIO 2.82 (<5); CREATININE FOR GFR 0.84 MG/DL (0.70-1.30); GLOMERULAR FILTRATION RATE > 60.0 (>42); GLUCOSE, FASTING 105 MG/DL (74-106); HDL CHOLESTEROL 41.8 MG/DL (>40); LDL CHOLESTEROL 39.4 MG/DL (<100); MAGNESIUM LEVEL 1.5 MG/DL (1.8-2.4); NON-HDL-C 76.2 MG/DL; POTASSIUM SERUM 4.3 MMOL/L (3.5-5.1); SODIUM LEVEL 143 MMOL/L (136-145); TOTAL PROTEIN 6.6 G/DL (5.7-8.2); TRIGLYCERIDES LEVEL 184 MG/DL (<150)
== END ==
LOC: M PLALAB 07:52
PROVIDERS: ATTEND Nurse Practitioner Adult Health
DX: E11.9 Type 2 diabetes mellitus without complications (principal)

== ENCOUNTER → 2025-02-24 | Outpatient (CLI) | payer MEDICARE, BC ==
[~2025-02-24] MED LIST changes: -BRIM1OPD OU; +BRIM5DRO25 OU
== END ==
LOC: M PLAIMG 08:40
PROVIDERS: ATTEND Internal Medicine Critical Care Medicine
DX: R91.8 Other nonspecific abnormal finding of lung field (principal)

== ENCOUNTER → 2025-06-15 | Outpatient (CLI) | payer MEDICARE, BC ==
[2025-06-15 11:36] LABS: BASO # 0.1 10^3/uL (0.0-0.2); BASO % 0.7 % (0.0-1.0); EOS # 0.4 10^3/uL (0.0-0.5); EOS % 2.6 % (0.0-3.0); LYMPH # 2.2 10^3/uL (1.5-5.0); LYMPH % 15.9 % (24.0-44.0); MONO # 1.1 10^3/uL (0.0-0.8); MONO % 7.8 % (2.0-8.0); NEUTROPHILS # 10.0 10^3/uL (1.5-8.5); NEUTROPHILS % 72.4 % (36.0-66.0); PLATELET COUNT, AUTOMATED 307 10^3/uL (150-450)
[2025-06-15 11:50] LABS: ESTIMATED AVERAGE GLUCOSE 120.0 MG/DL (60-110)
[2025-06-15 12:09] LABS: ALT/SGPT 26 U/L (7.0-40); AST/SGOT 18 U/L (<34); CALCIUM LEVEL 9.7 MG/DL (8.3-10.6); CARBON DIOXIDE LEVEL 30 MMOL/L (20-31); CHLORIDE LEVEL 102 MMOL/L (98-107); CHOLESTEROL LEVEL 113 MG/DL (<200); CHOLESTEROL RISK RATIO 2.85 (<5); CREATININE FOR GFR 0.89 MG/DL (0.70-1.30); GLOMERULAR FILTRATION RATE > 90.0 (>42); LDL CHOLESTEROL 34.4 MG/DL (<100); MAGNESIUM LEVEL 1.7 MG/DL (1.8-2.4); NON-HDL-C 73.4 MG/DL; POTASSIUM SERUM 4.3 MMOL/L (3.5-5.1); SODIUM LEVEL 140 MMOL/L (136-145); TRIGLYCERIDES LEVEL 195 MG/DL (<150)
== END ==
LOC: M PLALAB 07:31
PROVIDERS: ATTEND Nurse Practitioner Adult Health
DX: E11.9 Type 2 diabetes mellitus without complications (principal); E78.2 Mixed hyperlipidemia; I10 Essential (primary) hypertension; E55.9 Vitamin D deficiency, unspecified; M1A.9XX0 Chronic gout, unspecified, without tophus (tophi)

== ENCOUNTER → 2025-07-26 | Outpatient (CLI) | payer MEDICARE, BC | LOC: M PLALAB 07:42 | PROVIDERS: ATTEND Urology | DX: Z12.5 Encounter for screening for malignant neoplasm of prostate (principal) | CPT/HCPCS: 36415; G0103 ==

== ENCOUNTER → 2025-09-27 | Outpatient (CLI) | payer MEDICARE, BC ==
[2025-09-27 13:32] LABS: PLATELET COUNT, AUTOMATED 295 10^3/uL (150-450)
[2025-09-27 13:45] LABS: ESTIMATED AVERAGE GLUCOSE 126.0 MG/DL (60-110)
[2025-09-27 14:03] LABS: ALT/SGPT 31 U/L (7.0-40); AST/SGOT 18 U/L (<34); CALCIUM LEVEL 9.2 MG/DL (8.3-10.6); CARBON DIOXIDE LEVEL 28 MMOL/L (20-31); CHLORIDE LEVEL 104 MMOL/L (98-107); CHOLESTEROL LEVEL 94 MG/DL (<200); CHOLESTEROL RISK RATIO 2.20 (<5); CREATININE FOR GFR 0.89 MG/DL (0.70-1.30); GLOMERULAR FILTRATION RATE > 90.0 (>42); LDL CHOLESTEROL 20.6 MG/DL (<100); MAGNESIUM LEVEL 1.6 MG/DL (1.8-2.4); NON-HDL-C 51.4 MG/DL; POTASSIUM SERUM 4.4 MMOL/L (3.5-5.1); SODIUM LEVEL 138 MMOL/L (136-145); TRIGLYCERIDES LEVEL 154 MG/DL (<150)
== END ==
LOC: M PLALAB 10:20
PROVIDERS: ATTEND Nurse Practitioner Adult Health
DX: I48.0 Paroxysmal atrial fibrillation (principal); E11.9 Type 2 diabetes mellitus without complications; E78.2 Mixed hyperlipidemia; I10 Essential (primary) hypertension; M1A.9XX0 Chronic gout, unspecified, without tophus (tophi); E55.9 Vitamin D deficiency, unspecified

== ENCOUNTER → 2025-09-28 | Outpatient (REF) | payer MEDICARE, OTHER ==
[2025-09-28 20:23] LABS: CREATININE, URINE 86.3 MG/DL; MALB URINE SIEMENS 165.0 MG/L; MAU/CREAT RATIO 191.1 MCG/MG (0.0-30.0)
== END ==
LOC: M LAB REF 16:55
PROVIDERS: ATTEND Internal Medicine Nephrology
DX: E11.22 Type 2 diabetes mellitus with diabetic chronic kidney disease (principal)